=== PATIENT | male | born 1955 | race Caucasian/White ===

== ENCOUNTER 2017-02-23 18:15 | Emergency (ER) | payer BC ==
[~2017-02-23] VITALS: Ht 182.9 cm; Wt 125.7 kg
[2017-02-23 18:15] VITALS: Ht 182.9 cm; Wt 125.7 kg
[~2017-02-23 18:15] MED LIST: ACET-2321 PO; AMOX500C2 PO; ASPI-917 PO; CABE0.5T2 PO; LOSA50TA52 PO; MAGN400O4 PO; MELO-273 PO; OXYC-544 PO; POLY17PO6 PO; TEST200V21 INJ; TRAM-277 PO; TRAM50TA53 PO
--- NOTE | 2017-02-23 18:15 | NUR ---
TRIAGE NOTE PT MOVED FROM EMS CART TO ED CART AND HAVING ALOT OF HIP SPASMS. PT IS NOT ABLE TO LAY ON HIS RIGHT HIP AT ALL AND HIS RIGHT FOOT IS INTERNALLY ROTATED. PT IS YELLING OUT WITH MOVEMENT AND UBNABLE TO GET COMFORTABLE.
--- OUTSIDE RECORDS SUMMARY | 2017-02-23 18:23 | XMS REPORT | Continuity of Care Document ---
Author Author [facility] Organization [facility] Address Unknown Phone Unavailable Support Name Relationship Address Phone TAWANDA CHRISTENSEN MD Caregiver [address] [place] [address] [place] [address] Unavailable YOLI MATHIS MD Caregiver [address] [place] [address] Unavailable YOLI MATHIS MD Caregiver [address] [place] [address] [place] [address] Unavailable WALT MACEDO Next Of Kin [address] [place] [id number] Insurance Providers Guarantor Melissa Macedo Address [address] [place] [address] Email [email or web address] Payer [facility] Policy Number [id number] Subscriber's Name Melissa Macedo Relationship 18 Self Group Number [id number] Advance Directives Directive Response Recorded Date/Time Ordered Resuscitation Status Full Code 01/15/17 4:39pm Resuscitation Documents on File No 01/16/17 10:58am DPOA for Healthcare Only No 01/16/17 10:58am Living Will No 01/16/17 10:58am Problems Active Problems Medical Problem Onset Date Status Degenerative arthritis of hip Unknown Acute Hypertension Unknown Obesity (BMI 30-39.9) Unknown Pituitary macroadenoma Unknown Risk factors for obstructive sleep apnea Unknown Medications Current Home Medications Medication Dose Units Route Directions Days Qty Instructions Start Date Acetaminophen (Tylenol) 325 Mg Tablet 650 Mg Oral Four Times Daily 60 Tablet 01/17/17 Amoxicillin 500 Mg Capsule 4 Cap Oral Daily as needed for Dental Apt 12/04/16 Aspirin (Aspirin Ec) 325 Mg Tablet. 325 Mg Oral Twice A Day 84 Tablet Take aspirin 325mg twice a day for 6 weeks for blood clot prevention. 01/17/17 Cabergoline 0.5 Mg Tablet 1 Tab Oral 2XWK TAKE 1 TAB PO ON TUES AND FRI AT HS 12/04/16 Losartan Potassium 50 Mg Tablet 1 Tab Oral Daily 12/04/16 Magnesium Hydroxide (Milk Of Magnesia) 400 Mg/5 Ml Oral.susp 30 Ml Oral 0800 30 Days 01/17/17 Meloxicam 7.5 Mg Tablet 1 Tab Oral Daily 12/04/16 Oxycodone Hcl (Roxicodone) 5 Mg Tablet 5-10 Mg Oral Every 3 Hours 60 Tablet Take 1-2 (5 mg) tablets, by mouth, every 4 hours. 01/17/17 Polyethylene Glycol 3350 (Miralax) 17 Gm Powd.pack 17 G Oral Daily as needed for Constipation 1 Bottle Take 17 Grams (1 capful), by mouth, once a day. 01/17/17 Testosterone Cypionate 200 Mg/1 Ml Vial 200 Mg Injection Every 2 Weeks 12/04/16 Tramadol Hcl 50 Mg Tablet 1-2 Tab Oral Every 6 Hours as needed for Pain 07/06/09 Tramadol Hcl (Ultram) 50 Mg Tablet 1-2 Tab Oral Every 6 Hours as needed for Pain 60 Tablet 01/17/17 Past Home Medications Medication Directions Ordered Status Aspirin (Aspir 81) 81 Mg Tablet.dr, 81 Mg Oral Daily 07/06/09 Discontinued Social History Social History Problem Response Recorded Date/Time Onset Date Status Reason for Hospitalization Right total hip replacement 01/17/2017 2:00pm Not Applicable Not Applicable Chewing Tobacco Status No 01/16/2017 6:00am Not Applicable Not Applicable Hx Substance Use No 01/16/2017 6:00am Not Applicable Not Applicable Hx Alcohol Use Y weekly 01/16/2017 6:00am Not Applicable Not Applicable Has the pt used tobacco in the last 12 months Yes 01/16/2017 6:00am Not Applicable Not Applicable Query Response Start Date Stop Date Smoking Status Current every day smoker Hospital Discharge Instructions Instructions: Care Instructions: Reason for Hospitalization: Right total hip replacement I was in the hospital because (patient own words): HIP REPLACEMENT TO RESSUME A GOOD QUALITY OF LIFE. Discharge Diet: Resume normal diet as tolerated Discharge Activity: Continue the exercises you were given in the hospital three times a day. Your therapist will provide you with a home therapy program prior to your hospital discharge. As you feel stronger, increase the number of repetitions you do in each session. Please check with us before you swim, use a whirlpool, drive or ride a bicycle. Follow Up Appointments: Follow up as scheduled Pending Lab / Results: No Pending Lab Patient Instructions: Driving may be resumed once you are no longer taking narcotic medications and feel you can safely operate the vehicle. You may wish to practice in an empty parking lot at first. Keep in mind that your reaction time will be delayed for up to 6 weeks after surgery. Contact your surgeon for antibiotics to take before having dental work. Wound/Incision Care: In most cases, a Mepilex dressing will be placed at the time of surgery. This dressing will not need to be covered while showering. Leave dressing in place until your follow-up appointment as long as it remains clean, dry and stuck down well around the edges. Call your Doctor if you encounter a problem with your dressing. Please avoid submerging your incision until it is completely healed, once the Mepilex dressing is removed. This includes bathtubs, swimming pools, and hot tubs. DO NOT USE ALCOHOL, PEROXIDE, OR OINTMENTS of any kind on your incision. Pain Scale Utilized to Educate Patient: 0-10 Pain Scale Pain Management/Treatment: Ice packs may be used, and will also help with the pain. You will be given a prescription for pain. Expected Signs/Symptoms: Some swelling around the incision, as well as in your feet and legs is normal. To help with this, elevate your feet on a footstool when sitting in a chair, and do the ankle pumps and circles whenever you are sitting still. Muscle action helps to move collected fluid out of the tissues and improve circulation. Ice packs may be used, and will also help with the pain. Report any persistent swelling, calf tenderness, increase in pain, or pain in the calf with warmth, or redness to your doctor. Notify Physician If: Report any complications to my office immmediately. This includes excessive bleeding, wound breakdown, redness around the wound, uncontrolled pain, or fever over 101 on 3 different measurements. Eat a balanced diet and get plenty of rest. During Business Hours:: If you have any questions or concerns, please call during regular office hours ([phone]). After Business Hours:: If you have any problems or need to reach a physician after hours or on the weekend please call the hospital's main number [phone] to have your physician paged. Condition at time of discharge: Good Plan of Care Discharge Date 01/17/17 2:17pm Disposition 01 DISCHARGED HOME, SELF-CARE Instructions/Education Provided [facility] Postop Instructions RORY Mathis General Instructions Prescriptions See Medication Section Additional Instructions/Education FOLLOW UP WITH DR MATHIS 4--17 @ 9:00AM [facility] ON 01-19-2017 AT 1:45PM FOR PHYSICAL THERAPY. PHONE [phone] Care Plan and Goals See Discharge Instructions Section Functional Status Query Response Date Recorded Mobility Status Ambulatory w/assist January 17, 2017 2:00pm Assistive Devices None January 17, 2017 2:00pm Activity Limitations None January 17, 2017 2:00pm Feeding Ability Independent January 17, 2017 2:00pm Toileting Ability Independent January 17, 2017 2:00pm Grooming Ability Independent January 17, 2017 2:00pm Dressing Ability Independent January 17, 2017 2:00pm Driving Ability Dependent January 17, 2017 2:00pm Housework Ability Independent January 17, 2017 2:00pm Meal Preparation Ability Independent January 17, 2017 2:00pm Stair Climbing Ability Independent January 17, 2017 2:00pm Ability to complete ADL's impeded by Impaired Mobility January 17, 2017 2:00pm Cognitive/Perceptual Impairments Impaired vision January 17, 2017 2:00pm Visual Assistive Devices Glasses With patient January 16, 2017 10:56am Allergies, Adverse Reactions, Alerts Allergen Type Severity Reaction Status Last Updated Cefadroxil Hydrate Allergy Mild RASH Active 01/16/17 Immunizations Query Response on File Recorded Date/Time Hx Influenza Vaccination Y 01/16/17 6:00am Hx Pneumococcal Vaccination No 01/16/17 6:00am Hx Influenza Vaccination Y 01/16/17 6:00am Influenza Vaccine Hx 08/201601/17/17 12:12pm Vital Signs Acute Vital Signs Vital Response Date/Time Temperature (Fahrenheit) 97.3 deg F (96.8 - 99.1) 01/17/2017 11:53am Temperature (Calculated Celsius) 36.00511 degrees C (36.0 - 37.3) 01/17/2017 11:53am Temperature Source Temporal 01/16/2017 10:29am Pulse Rate (adult) 67 bpm (60 - 100) 01/17/2017 11:53am Respiratory Rate 16 breaths/min (10 - 20) 01/17/2017 11:53am O2 Sat by Pulse Oximetry 94 % (90 - 100) 01/17/2017 11:53am Oxygen Delivery Method Room Air 01/17/2017 12:28am Oxygen Delivery Method Room Air 01/17/2017 11:53am Oxygen Flow Rate 1.00 L/min 01/16/2017 7:29pm Blood Pressure 124/71 mm Hg 01/17/2017 11:53am Blood Pressure Source Automatic Cuff 01/17/2017 11:53am Height (Feet) 6 feet 01/16/2017 5:34am Height (Inches) 0.00 inches 01/16/2017 5:34am Weight (Kilograms) 126.500 kg 01/17/2017 7:23am Body Mass Index (BMI) 36.5 01/16/2017 5:34am Results Laboratory Results Test Name Result Units Flags Reference Collection Date/Time Result Date/ Time Comments White Blood Count 17.7 T/MM3 H 4.5-11.0 01/17/2017 4:20am 01/17/2017 5: 18am Red Blood Count 4.50 M/MM3 4.50-5.90 01/17/2017 4:20am 01/17/2017 5: 18am Hemoglobin 14.5 GM/DL 13.5-17.5 01/17/2017 4:20am 01/17/2017 5:18am Hematocrit 42.4 % 41-53 01/17/2017 4:20am 01/17/2017 5:18am Mean Corpuscular Volume 94.2 UM3 80-100 01/17/2017 4:20am 01/17/2017 5: 18am Mean Corpuscular Hemoglobin 32.2 UUG 26-34 01/17/2017 4:20am 2016 5:18am Mean Corpuscular Hemoglobin Concent 34.2 GM/DL 31-37 01/17/2017 4:20am 01/17/2017 5:18am RDW Standard Deviation 45.7 FL 36.9-50.2 01/17/2017 4:20am 01/17/2017 5 :18am Platelet Count 204 T/MM3 130-400 01/17/2017 4:20am 01/17/2017 5:18am Mean Platelet Volume 10.7 UM3 9.4-12.4 01/17/2017 4:20am 01/17/2017 5: 18am Icterus Index < 2 0-7 01/17/2017 4:20am 01/17/2017 5:23am Chemistry Specimen Hemolysis < 15 0-25 01/17/2017 4:01/17/2017 5 :23am 0-25: Specimen Exhibited No Hemolysis. Turbidity < 20 0-20 01/17/2017 4:01/17/2017 5:23am Sodium Level 138 MEQ/L 134-144 01/17/2017 4:01/17/2017 5:23am Potassium Level 4.2 MEQ/L 3.6-5 01/17/2017 4:01/17/2017 5:23am Chloride Level 108 MEQ/L H 98-107 01/17/2017 4:01/17/2017 5:23am Carbon Dioxide Level 25 MEQ/L 22-30 01/17/2017 4:01/17/2017 5: 23am Anion Gap 5 MEQ/L 5-01/17/2017 4:01/17/2017 5:23am Blood Urea Nitrogen 17.0 MG/DL 9-01/17/2017 4:01/17/2017 5: 23am Creatinine 0.8 MG/DL 0.8-1.5 01/17/2017 4:01/17/2017 5:23am BUN/Creatinine Ratio 21 RATIO 6-26 01/17/2017 4:01/17/2017 5:23am Glomerular Filtration Rate Calc 98 01/17/2017 4:01/17/2017 5: 23am Glucose Level 102 MG/DL 75-110 01/17/2017 4:01/17/2017 5:23am Calculated Osmolality 268 MOSM/KG 261-280 01/17/2017 4:01/17/2017 5:23am Calcium Level 8.9 MG/DL D 8.4-10.2 01/17/2017 4:01/17/2017 5:26am Ionized Calcium (Measured) 1.17 MMOL/L 1.12-1.32 01/16/2017 5:42am 6:11am Name: MELISSA MACEDO Unit #: [id number] : 1955 Sex: M Admit Date: 01/16/17 Loc / Svc: SRG Discharge Date: DIAGNOSTIC IMAGING REPORT Report #: [id number] [facility] [place] EXAM: PELVIS W/1 VIEW RT HIP LOCATION OF DICTATION: [place] HISTORY: ITS.REASON: POSTOP COMPARISON: No prior studies available for comparison. FINDINGS: There is normal osseous mineralization. The ilioischial and iliopectineal lines are intact. The SI joints are well-corticated. Bilateral total hip replacements. No evidence for orthopedic hardware malfunction. Mild spondylosis suggested the lower lumbar spine. IMPRESSION: 1. Bilateral total hip replacements. No evidence for orthopedic hardware malfunction or malalignment with special attention to the right hip joint. . Procedures Procedure Status Date Provider(s) Total replacement of right hip joint Completed 01/16/17 YOLI MATHIS MD Encounters Encounter Location Arrival/Admit Date Discharge/Depart Date Attending Provider Discharged Inpatient [facility] 01/16/17 5:22am 01/17/17 2:17pm YOLI MATHIS MD
--- OUTSIDE RECORDS SUMMARY | 2017-02-23 18:24 | XMS REPORT | Continuity of Care Document ---
Author Author [facility] Organization [facility] Address Unknown Phone Unavailable Allergies Active Description Code Type Severity Reaction Onset Reported/Identified Relationship to Patient Clinical Status Yes Abhi YASH N/A N/A 04/09/2014 Medications Problems Date Dx Coded Attending Type Code Diagnosis Diagnosed By 10/21/2012 Jomar Nava MD Final 787.20 DYSPHAGIA NOS 10/21/2012 Jomar Nava MD Admitting 787.20 DYSPHAGIA NOS Procedures Results Test Result Range CBC With Platelet and Differential - 11/14/16 11:12 Absolute Basophils 0.02 10*3/uL 0.00- 0.20 Absolute Eosinophils 0.08 10*3/uL 0.00- 0.50 Absolute Lymphocytes 1.36 10*3/uL 0.80- 3.30 Absolute Monocytes 0.50 10*3/uL 0.30- 1.00 Absolute Neutrophils 7.59 10*3/uL 1.90- 7.00 Basophils 0 % 0-2 Eosinophils 1 % 0-4 HCT 48.8 % 42.0-52.0 HGB 17.1 g/dL 14.0-18.0 Immature Granulocytes 0.2 % 0.0-1.0 Lymphocytes 14 % 20-46 MCH 32.5 pg 27.0-32.0 MCHC 35.0 g/dL 32.0-36.0 MCV 92.8 fL 82.0-99.0 Monocytes 5 % 4-11 MPV 11.0 fL 8.8-14.8 Neutrophils 79 % 51-75 Platelet Count 220 K/uL 150-400 RBC 5.26 10*6/uL 4.60-6.20 RDW 15.9 % 11.5-14.5 WBC 9.6 K/uL 4.8-10.8 PSA - 11/14/16 11:12 PSA 0.9 ng/mL 0.0-4.5 TSH - 11/14/16 11:12 TSH 2.77 uIU/mL 0.35-4.94 Cortisol AM - 11/14/16 11:12 Cortisol AM 5 ug/dL 3-20 Free T4 - 11/14/16 11:12 Free T4 0.9 ng/dL 0.7-1.5 FSH and LH - 11/14/16 11:12 FSH 0.3 mIU/mL 1.0-12.0 Luteinizing Hormone 0.2 mIU/mL 0.6-12.1 Prolactin - 11/14/16 11:12 Prolactin 9.9 ng/mL 3.5-19.4 Testosterone - 11/14/16 11:12 Testosterone 1259 ng/dL 221-716 ACTH - 11/14/16 11:12 ACTH 17 pg/mL IGF-1 and IGF Binding Protein 3 - 11/14/16 11:12 IGFBP-3, S 4.8 mcg/mL CBC With Platelet and Differential - 12/21/16 16:06 Absolute Basophils 0.02 10*3/uL 0.00- 0.20 Absolute Eosinophils 0.18 10*3/uL 0.00- 0.50 Absolute Lymphocytes 1.22 10*3/uL 0.80- 3.30 Absolute Monocytes 0.91 10*3/uL 0.30- 1.00 Absolute Neutrophils 6.46 10*3/uL 1.90- 7.00 Basophils 0 % 0-2 Eosinophils 2 % 0-4 HCT 50.8 % 42.0-52.0 HGB 17.4 g/dL 14.0-18.0 Immature Granulocytes 0.3 % 0.0-1.0 Lymphocytes 14 % 20-46 MCH 32.0 pg 27.0-32.0 MCHC 34.3 g/dL 32.0-36.0 MCV 93.6 fL 82.0-99.0 Monocytes 10 % 4-11 MPV 10.6 fL 8.8-14.8 Neutrophils 73 % 51-75 Platelet Count 230 K/uL 150-400 RBC 5.43 10*6/uL 4.60-6.20 RDW 14.8 % 11.5-14.5 WBC 8.8 K/uL 4.8-10.8 Comprehensive Metabolic Panel (CMP) - 12/21/16 16:06 Albumin 3.7 g/dL 3.4-4.8 Alkaline Phosphatase 78 U/L 40-150 ALT (SGPT) 17 U/L 0-55 Anion Gap 8 NA 3-20 AST (SGOT) 17 U/L 5-34 Bilirubin Total 0.3 mg/dL 0.2-1.2 BUN 13 mg/dL 8-26 Calcium 9.3 mg/dL 8.4-10.2 Chloride 109 mEq/L 99-111 CO2 23 mEq/L 23-31 Creatinine 0.81 mg/dL 0.72-1.25 Globulin 2.9 g/dL 1.8-4.0 Glucose 78 mg/dL 70-99 Potassium 4.4 mEq/L 3.5-5.2 Protein 6.6 g/dL 6.0-7.6 Sodium 140 mEq/L 135-144 eGFR - 12/21/16 16:06 eGFR >60 mL/min >60 Hemoglobin A1C - 12/21/16 16:06 Hemoglobin A1C 5.6 % 4.1-5.6 Estimated Average Glucose - 12/21/16 16:06 Estimated Average Glucose 114.0 mg/dL Urinalysis with reflex microscopic - 12/21/16 16:12 Appearance Clear NA Bilirubin Negative NA Negative Blood Negative NA Negative Color Yellow NA Glucose, Urine Negative Negative Ketones Negative Negative Leukocyte Esterase Negative NA Negative Nitrites Negative NA Negative pH 6.5 NA 5.0-8.0 Protein Negative Negative Specific [place] 1.022 NA 1.003-1.030 UA Collection type Voided NA Urobilinogen 1.0 mg/dL <1.0 Encounters ACCT No. Visit Date/Time Discharge Status Pt. Type Provider Facility Loc./Unit Complaint [id number] 10/21/2012 09:09:00 2011 23:59:59 CLS Outpatient Elijah NGUYEN, Jomar Mcdaniel [facility] on [address]
[2017-02-23] MEDS ORDERED: ACET-62 PO (18:36)
[2017-02-23] MEDS ORDERED: ASPI325T PO (18:37)
--- NOTE | 2017-02-23 18:37 | ERPDOC ---
Departure Disposition Decision Date: Feb 23, 2017 Disposition Decision Time: 21:37 Disposition: 01 DISCHARGED HOME, SELF-CARE Impression Impression Impression: Primary Impression: Dislocation of hip joint prosthesis Encounter type: initial encounter Qualified Codes: T84.029A - Dislocation of unspecified internal joint prosthesis, initial encounter; Z96.649 - Presence of unspecified artificial hip joint Severity: Severe Condition: Improved Seen By: Physician only Referrals: TAWANDA CHRISTENSEN MD (Family) 1 Week YOLI MATHIS MD 1 Week Patient Instructions: Hip Dislocation (ED) Problems/Meds/Labs Reviewed?: Yes Medications reviewed and manag: Yes Additional Instructions: Your hip was dislocated. Dr. Mathis has put it back into place. Keep the knee immobilizer in place as directed. Follow Dr. Mathis's hip instructions to the letter. Take your medications as prescribed and use the tramadol if you need to for pain. Follow up with Dr. Mathis next week as arranged. Follow up with your doctor. Follow up care ordered?: Yes Mental Status: Alert, Oriented Scripts Tramadol HCl (Tramadol HCl) 50 Mg Tablet 1-2 TAB PO Q6HR Y for PAIN, #20 TAB 0 Refills Prov: NADIYA DE LA FUENTE DO 02/23/17 HPI - Lower Extremity General Stated Complaint: HIP PAIN Time Seen by Provider: 18:27 Source: patient Exam Limitations: no limitations HPI - Lower Extremity Initial Comments 61yo man presented to the ER by EMS for right hip pain. Pt has had that hip replaced previously. While bending over to tie his shoes, pt says that his hip gave way and he fell down. Now cannot lie on his right side and cannot bear weight. While en route, pt soaked up 200mcg of fentanyl IV, but cont to c/o 8/ 10 => 9/10 hip pain. Last meal was at 1330 today; last fluid intake was water, 2hrs prior. Occurred At: home Onset/Timing: Rapid Duration: 1 hr Pain/Severity Scale: Now: 8/10, Worst: 9/10 Severity: severe Pain/Injury Location: right hip Method of Injury: unknown Modifying Factors/Context: IMPROVES WITH: immobilization, pain medication, WORSE WITH: jarring, movement Hx of Similar Symptoms: Yes Quality: sharpness, stabbing Allergies: Coded Allergies: Cefadroxil Hydrate (Verified Allergy, Mild, RASH, 01/16/17) Past History Patient Medical History (1) Hypogonadism (2) Obesity (BMI 30-39.9) (3) Pituitary macroadenoma Past Medical History Metabolic: hypertension Cardiac: CAD Musculoskeletal: osteoarthritis Surgical History Joint: hip Vaccines Hx Influenza Vaccination: Yes () Hx Pneumococcal Vaccination: No Social History Does patient use chewing tobac: No Substance Use Type: does not use Review of Systems Musculoskeletal General: cramps, joint pain, tenderness All other Systems All Other Systems: Reviewed and Negative Physical Exam General General Nourishment: well nourished, well developed, appears stated age, no acute distress, adult, obese General Body Habitus: well groomed Vitals and Pain Weight: Kilograms: Height (feet): 6 Height (inches): 0.00 Triage Pain Scale: RN VS reviewed by Provider: Yes Normal Exams: Head: Normocephalic w/o trauma Eyes: Pupils are PERRLA w/ EOMI, No scleral icterus, irritation ENMT: No facial trauma, nasal exudates, pharyngeal erythema Neck: Full range of motion, without adenopathy, JVD Lymphatic: No lymphadenopathy Musculoskeletal: No tenderness, or deformity noted Integumentary: No rashes, hives, or bruising noted Neurologic: Patient is alert, and oriented Psychiatric: Patient exhibits, appropriate attention Respiratory (brief) Respiratory: FOUND: clear all fay, equal bilaterally, symmetrical, NOT FOUND : rales, wheezes Cardiovascular (brief) Cardiac: FOUND: regular rate, regular rhythm, NOT FOUND: click, gallop, murmur , pedal edema, peripheral edema, rub Capillary Refill: <2 sec Pulses: all distal extremities, equal, strong Abdomen (brief) Abdominal Brief: FOUND: bowel normo active x4, soft, NOT FOUND: distended, hepatosplenomegaly, pulsatile mass, tender Differential Diagnoses Considering: Contusion, Dislocation, Fracture, Sprain, Strain, Trauma Procedures Procedures Performed Procedures Performed: Conscious Sedation Conscious Sedation Procedure Conscious Sedation : Consent Obtained: Yes Procedure: Right hip reduction Monitoring: oxygen saturation, cardiac, CO2 Personnel: Signing Physician, Nurse 1 Complications: No Interventions: Yes (Required manual ventilation with a BVM) Maximum Depth of Sedation: Moderate Sedation Conscious Sedation Comments Mallampati 2; 3+ fingerbreadths from mandible to sternal notch. Reduction of Joint/Fracture Procedure Joint/Fracture Reduc : Consent Obtained: Yes Pre-procedure NV: FOUND: cap refill < 3 sec, good movement, good sensation Location: Left hip Anesthesia: conscious sedation Medication Used: other (Propofol) Attempts: 1 Post-procedure NV: FOUND: cap refill < 3 sec, good movement, good sensation Progress Results/Orders Orders Procedure Category Date Status Time Normal Saline (Normal PHA 02/23/17 Complete Saline Iv) 18:45 Ketamine (Ketalar) PHA 02/23/17 Complete 18:45 Hip Right 2 View RAD 02/23/17 Resulted 18:31 Ondansetron Inj PHA 02/23/17 Complete (Zofran) 19:30 Lorazepam (Ativan) PHA 02/23/17 Complete 19:45 Iv Lock (Ed Only) EDM 02/23/17 Transmitted 19:51 Propofol 200mg PHA 02/23/17 Complete (Diprivan) 20:45 Hip Right 2 View RAD 02/23/17 Resulted Premade Splint EDM 02/23/17 Transmitted 21:43 Medications Current ED Medications Sodium Chloride (Normal Saline IV) 1,000 ml @ 70 mls/hr [id number] ONCE IV Last administered on 02/23/17 18:47; Start 02/23/17 at 18:45; Stop 02/23/17 at 22:55 ; Status DC Ketamine HCl (Ketalar) 100 mg O ONCE IV Last administered on 02/23/17 18:47; Start 02/23/17 at 18:45; Stop 02/23/17 at 18:46; Status DC Ondansetron HCl (Zofran) 4 mg O ONCE IV Last administered on 02/23/17 18:53; Start 02/23/17 at 19:30; Stop 02/23/17 at 19:31; Status DC Lorazepam (Ativan) 1 mg O ONCE IV Last administered on 02/23/17 19:52; Start 02/23/17 at 19:45; Stop 02/23/17 at 19:46; Status DC Propofol (Diprivan) 200 mg O ONCE IV Last administered on 02/23/17 20:49; Start 02/23/17 at 20:45; Stop 02/23/17 at 20:46; Status DC Progress Progress 1850: Pt prep'ed by local protocol for administration of ketamine for sx relief. 100mg ketamine given by physician for pain relief. Pt tolerated the medication well with continued stable VS. Radiology contacted for ordered images. Pt with confirmed hip dislocation. Dr. Mathis contacted for aid with reduction in OR (unable to provide sedation in ER due to staffing). OR occupied for 2+ hours. Volume dropped off in ER, so Dr. Mathis contacted for reduction in ER. Successful closed reduction in ER with propofol. Post-reduction films confirm reduction. Consult/PCP Consult/PCP : Physician Contacted: Dr. Mathis Time Called: 19:11 Type of discussion: Phone Consult/PCP Xray Xray #1: Xray: Hip R Interpretation: Abnormal (Dislocated hip without other bony abn.), Interpreted by Me Xray #2: Xray: Hip R Interpretation: Abnormal (Interval reduction; no evidence of fx), Interpreted by NADIYA Ramirez DO Feb 23, 2017 18:37
[2017-02-23] MEDS ORDERED: POLY17PO6 PO (18:39)
[2017-02-23] MEDS ORDERED: NORMAL SALINE 1,000 ML IV ONE (18:45)
[2017-02-23] MEDS ORDERED: KETAMINE 500mg/10ml INJECTION IV ONE (18:45)
--- NOTE | 2017-02-23 18:47 | NUR ---
IV FLUID #1 IV 1000CC NS STARTED AT 999CC/HR IV SITE WITHOUT REDNESS OR SWELLING
--- NOTE | 2017-02-23 18:47 | NUR ---
KETAMINE IV KETAMINE GIVEN TO PT FOR PAIN SLOW IV PUSH GIVEN BY DR DE LA FUENTE
--- NOTE | 2017-02-23 18:51 | NUR ---
STATUS PT IS RELAXED AND ABLE TO GET PT BETTER POSITIONED ON THE SLIDE BOARD FOR XRAY TALKING SOME, BUT VERY DAZED STATES HE DOESN'T LIKE THE WAY IT FEELS REPORTS HE HAS NO PAIN RIGHT NOW
--- NOTE | 2017-02-23 18:53 | NUR ---
ZOFRAN IV ZOFRAN GIVEN ORDERED
--- OUTSIDE RECORDS SUMMARY | 2017-02-23 18:56 | XMS REPORT | Continuity of Care Document ---
Author Author [facility] Organization [facility] Address Unknown Phone Unavailable Allergies Active Description [...] 6.5 NA 5.0-8.0 Protein Negative Negative Specific [place] 1.022 NA 1.003-1.030 UA Collection type Voided NA Urobilinogen 1.0 mg/dL <1.0 Encounters ACCT No. Visit Date/Time Discharge Status Pt. Type Provider Facility Loc./Unit Complaint [id number] 10/21/2012 09:09:00 2011 23:59:59 CLS Outpatient Elijah NGUYEN, Jomar Mcdaniel [facility] [address]
--- NOTE | 2017-02-23 18:57 | NUR ---
XRAY PT TAKEN TO XRAY PER CART
--- NOTE | 2017-02-23 19:13 | NUR ---
ROOM PT RETURNED TO ROOM TA PER CART PT IS ALERT AND TALKING WITH STAFF
[2017-02-23] MEDS ORDERED: ONDANSETRON 4mg/2ml INJECTION IV ONE (19:30)
[2017-02-23] MEDS ORDERED: LORAZEPAM 2 MG/ML INJECTION IV ONE (19:45)
--- NOTE | 2017-02-23 19:54 | NUR ---
DR ADELE ANGULO NOTIFIED THAT WE CAN DO CONSCIOUS SEDATION HERE RIGHT NOW HE WILL BE HERE IN ABOUT 7 MIN
--- NOTE | 2017-02-23 20:02 | NUR ---
RT DIANA, RT AT BEDSIDE.
--- NOTE | 2017-02-23 20:07 | NUR ---
DISCUSSED STOPBANG QUESTION FINDINGS AND PT HAS HIGH RISK. DR DE LA FUENTE AT BEDSIDE, PERFORMED AIRWAY ASSESSMENT AT THIS TIME.
--- NOTE | 2017-02-23 20:36 | NUR ---
DR DR ANGULO AT BEDSIDE.
--- NOTE | 2017-02-23 20:42 | NUR ---
PROCEDERAL SEDATION BEGINS AT THIS TIME.
--- NOTE | 2017-02-23 21:07 | CONSPD ---
Consultation Info Date DATE: 02/23/17 TIME: 21:01 Reason for Consultation: right hip prosthetic dislocation Impression/Recommendation Impression/Recommendation: (1) Dislocation of hip joint prosthesis Status: Acute Qualifiers: Encounter type: initial encounter Qualified Codes: T84.029A - Dislocation of unspecified internal joint prosthesis, initial encounter; Z96.649 - Presence of unspecified artificial hip joint Recommendation: Closed reduction in the emergency room followed by strict hip precautions and follow up in office next week. Abductor pillow wedge at night and knee immobilizer. Ortho HPI HPI Elements Location: FOUND hip (right) Injury: No Pain: FOUND sharp Onset: Sudden Severity: FOUND severe Duration: FOUND 1-6 hours Previous Surgery: Yes Previous Injury: No HPI Mr. Macedo is a kind 51-year-old gentleman who is 5 weeks status post right total hip arthroplasty by myself. He states that yesterday he was playing on a sock and felt severe pain in his hip he had hit family member help him up and then the pain immediately when away. Today again he was putting on a sock without his assisted device and again felt immediate pain in his hip is brought to the emergency room and found to have a dislocation. I then severe pain in his hip he has no other complaints. Review of Systems Unable to Obtain ROS Due to: clinical condition Past Medical History Adult Current Medications Acetaminophen (Acetaminophen) 500 Mg Tablet, 2 TAB PO Q8H PRN for PAIN, ( Reported) Last Taken: Unknown Dose on 02/23/17 0800 Aspirin (Aspirin) 325 Mg Tablet, 325 MG PO BID, (Reported) Last Taken: Unknown Dose on 02/23/17 0800 Cabergoline (Cabergoline) 0.5 Mg Tablet, 0.5 MG PO 2XWK, (Reported) TAKE 1 TAB PO ON AND FRI AT HS Last Taken: Unknown Dose on 02/20/17 2000 Losartan Potassium (Losartan Potassium) 50 Mg Tablet, 50 MG PO DAILY, (Reported) Last Taken: Unknown Dose on 02/23/17 0800 Oxycodone HCl (Roxicodone) 5 Mg Tablet, 5-10 MG PO Q3H Take 1-2 (5 mg) tablets, by mouth, every 4 hours. Last Taken: Unknown Dose on Unknown Date & Time Polyethylene Glycol 3350 ( Miralax) 17 Gm Powd.pack, 17 G PO DAILY PRN for CONSTIPATION, (Reported) Last Taken: Unknown Dose on Unknown Date & Time Testosterone Cypionate ( Testosterone Cypionate) 200 Mg/1 Ml Vial, 200 MG INJ Q2WK, (Reported) Last Taken: Unknown Dose on 01/31/17 Tramadol Hcl (Tramadol Hcl) 50 Mg Tablet, 1-2 TAB PO Q6H PRN for PAIN, (Reported) Last Taken: Unknown Dose on 02/23/17 0800 Allergies Allergies: Coded Allergies: Cefadroxil Hydrate (Verified Allergy, Mild, RASH, 01/16/17) Vaccines 08/2016 No SKIN INTACT Social History Does patient use chewing tobac: No Substance Use Type: does not use Physical Exam General General: well nourished, well developed, no acute distress Respiratory FOUND non-labored Cardiovascular FOUND pedal pulses intact Musculoskeletal Comments Right leg is internally rotated and shortened. Integumentary FOUND dry, FOUND pink, FOUND warm Neurologic FOUND intact to light touch, FOUND no deficits Psychiatric FOUND alert, FOUND normal affect YOLI ANGULO MD Feb 23, 2017 21:06
--- NOTE | 2017-02-23 21:12 | PDOPERATE ---
Operative Report Date of Operation 02/23/17 Side: Right Preoperative Diagnosis: hip pain, other (dislocation of right hip prosthetic implant) Postoperative Diagnosis Same as preoperative diagnosis. Operation/Procedure: other (closed reduction of right hip prosthetic implant) Surgeon Jackelyn Mathis MD Nursing Program Chair none Complications None. Anesthesia Plan: TIVA Estimated Blood Loss none Fluids Please ER record Description of Operation After timeout was confirmed with all involved follows given by the ER physician. Once adequate anesthesia was obtained and performed a reduction maneuver to the right hip using the [place] maneuver. This was successful and I was able to range the hip without popping or grinding. It felt stable up to 90 . I then extended both legs they looked equal length and equal rotation. He was then allowed to awake from his anesthesia and knee immobilizers placed in the right knee. He is neurovascularly intact once awake. YOLI MATHIS MD Feb 23, 2017 21:12
--- NOTE | 2017-02-23 21:31 | NUR ---
RECOVERY COMPLETE PT HAS COMPLETED RECOVERY TIME POST PROCEDURE.
[2017-02-23] MEDS ORDERED: TRAM50TA4 PO (21:39)
--- NOTE | 2017-02-23 22:07 | NUR ---
AMBULATION PT ABLE TO AMBULATE AROUND ROOM WITHOUT DIFFICULTY, UTILIZING WALKER, KNEE IMMOBILIZER REMAINS IN PLACE
[2017-02-23 22:22] VITALS: BP 139/71; PULSE 69; RESP 16; TEMP 98.5; O2SAT 96
--- NOTE | 2017-02-23 22:22 | NUR ---
DISMISS PT DISMISSED VIA WC TO PRIVATE CAR DRIVEN BY FEMALE FRIEND. PT DENIES FURTHER QUESTIONS.
--- NOTE | 2017-02-25 09:58 | DI ---
Indication: ITS.REASON: POST REDUCTION PROCEDURE: HIP RIGHT 2 VIEW: Encounter: Initial Comparison: Earlier on the same date Findings: Prior femoral dislocation has been successfully reduced. No acute fracture or dislocation currently. Hip prosthesis appears intact. Impression: Interval reduction of the right femoral component dislocation. .
--- NOTE | 2017-02-25 10:14 | DI ---
Indication: ITS.REASON: Right hip Pain; prior replacement PROCEDURE: HIP RIGHT 2 VIEW: Encounter: Initial Comparison: January 16, 2017 Findings: Interval dislocation of the femoral component of the right total hip prosthesis. No acute fracture identified. Dislocation is superior and posterior. Impression: Posterior superior dislocation of the right femoral component. .
== END 2017-02-23 22:22 | disposition home or self-care (01) ==
LOC: ED 18:15
DX: T84.020A Dislocation of internal right hip prosthesis, initial encounter (principal); W18.39XA Other fall on same level, initial encounter; Y93.89 Activity, other specified; Y92.009 Unspecified place in unspecified non-institutional (private) residence as the place of occurrence of the external cause; Y99.8 Other external cause status
CPT/HCPCS: 27265; 73502; 96361; 96374; 96375; 99285; J2060; J2405; J2704; J7030

== ENCOUNTER 2017-07-24 07:30 | Inpatient (IN) ==
[~2017-07-24 07:30] MED LIST changes: -ACET-2321 PO; +ACETAMINOPHEN 500 MG TABLET PO ONE; -AMOX500C2 PO; -ASPI-917 PO; -CABE0.5T2 PO; +CLINDAMYCIN PB 900 MG/50 ML BAG IV ONE; +DEXAMETHASONE 4 MG/ML INJECTION IVP ONE; +FAMOTIDINE PB 20 MG/50 ML BAG IV ONE; +LIDOCAINE 1% (10mg/ml) 2mL INJ PF SDV ID ONE; -LOSA50TA52 PO; -MAGN400O4 PO; -MELO-273 PO; +MELOXICAM 15 MG TABLET PO ONE; +METOCLOPRAMIDE 10mg/2ml INJECTION IVP ONE; +NOZIN NASAL SWAB NAS ONE; +ONDANSETRON 4 MG/2 ML INJECTION IVP ONE; -OXYC-544 PO; -POLY17PO6 PO; -TEST200V21 INJ; -TRAM-277 PO; -TRAM50TA53 PO; +TRANEXAMIC ACID 1,000 MG in NS 100 ML IV ONE
[2017-07-24] MEDS ORDERED: EPINEPHrine 0.25 MG, BUPIVACAINE 0.25% PF 30 ML, MORPHINE SULFATE 15 MG, KETOROLAC INJ ... OPSITE ONE (08:00)
--- OUTSIDE RECORDS SUMMARY | 2017-07-24 08:27 | External Medical Summary | Referral Summary ---
:1955 Author Organization [facility] Address [address] [place] [address] Care Team Providers Name Role Phone Uriel Mckee Primary Care Physician Encounter [facility] [id number] Date(s): 05/11/15 - 05/11/15 [facility] [address] [place] [place] [address] - [place] Discharge Diagnosis: Hypogonadism, male Discharge Diagnosis: Pituitary macroadenoma Discharge Disposition: 01-Home or Self Care Attending Physician: Eri Fitzgerald MD Admitting Physician: Eri Fitzgerald MD Vital Signs Most recent to oldest [Reference Range]: 1 Peripheral Pulse Rate [60-100 bpm] 60 bpm (05/11/15 8:29 AM) Blood Pressure [90-140/60-90 mmHg] 115/72 mmHg (05/11/15 8:29 AM) Problem List Condition Effective Dates Status Health Status Informant Benign essential HTN(Confirmed) Resolved Cervical radiculopathy(Confirmed) Active Choking sensation(Confirmed) Active Essential hypertension Active (disorder)(Confirmed) Globus pharyngeus(Confirmed) Active Hip replacement(Confirmed) Resolved Hypertension(Confirmed) Active Morbid obesity(Confirmed) Active patient Obesity(Confirmed) Active Obesity (disorder)(Confirmed) Active Osteoarthritis(Confirmed) Active Pituitary macroadenoma(Confirmed) Active Psychologic conversion disorder Active (finding)(Confirmed) Sleep apnea(Confirmed) Active Sleep apnea (disorder)(Confirmed) Active Thyroid disease(Confirmed) Active Allergies, Adverse Reactions, Alerts Substance Reaction Severity Status Duricef Active Medications amoxicillin 500 mg oral tablet tabs, Oral, Once, NEEDED FOR DENTIST, 0 Refill(s) Start Date: 10/06/14 Status: Orderedaspirin 81 mg, Oral, Daily, 0 Refill(s) Start Date: 04/09/14 Status: Orderedcabergoline 0.5 mg oral tablet 1 tabs, Oral, 2x/Wk, # 8 Each, 4 Refill(s), Pharmacy: [facility] [employer] [id number] , 1 tabs Oral 2x/Wk Start Date: 12/30/14 Status: Orderedlosartan 50 mg oral tablet See Instructions, 1 TABS ORAL DAILY,INSTR:APPOINTMENT NEEDED PRIOR TO ADDITIONAL REFILLS., # 30 tabs, 5 Refill(s), eRx: [facility] [employer] [id number], 1 TABS ORAL DAILY,INSTR:APPOINTMENT NEEDED PRIOR TO ADDITIONAL REFILLS. Start Date: 05/19/15 Status: Orderedtestosterone cypionate 200 mg/mL intramuscular solution 200 mg 1 mL, IntraMuscular, q2wk, # 3 mL, 3 Refill(s) Start Date: 05/11/15 Status: OrderedtraMADol 50 mg oral tablet 1-2 tabs, Oral, q8hr, as needed for pain, [facility], # 60 tabs, 0 Refill(s), 1- 2 tabs Oral q8hr,PRN:as needed for pain Start Date: 09/03/14 Status: Ordered Results Hematology Most recent to oldest [Reference Range]: 1 WBC [4.8-10.8 10*3/uL] 8.0 10*3/uL (05/11/15 9:18 AM) RBC [4.60-6.20 10*6/uL] 4.76 10*6/uL (05/11/15 9:18 AM) Hgb [14.0-18.0 gm/dL] 14.3 gm/dL (05/11/15 9:18 AM) Hct [42.0-52.0 %] 43.3 % (05/11/15 9:18 AM) MCV [82.0-99.0 fL] 91.0 fL (05/11/15 9:18 AM) MCH [27.0-32.0 pg] 30.0 pg (05/11/15 9:18 AM) MCHC [32.0-36.0 gm/dL] 33.0 gm/dL (05/11/15 9:18 AM) RDW [11.5-14.5 %] 14.5 % (05/11/15 9:18 AM) Platelet [150-400 10*3/uL] 253 10*3/uL (05/11/15 9:18 AM) MPV [8.8-14.8 fL] 10.8 fL (05/11/15 9:18 AM) Immature Granulocytes [0.0-1.0 %] 0.2 % (05/11/15:18 AM) Neutrophils [51-75 %] 75 % (05/11/15 9:18 AM) Lymphocytes [20-46 %] 16 % *LOW* (05/11/15 9:18 AM) Monocytes [4-11 %] 8 % (05/11/15 9:18 AM) Eosinophils [0-4 %] 1 % (05/11/15:18 AM) Basophils [0-2 %] 0 % (05/11/15 9:18 AM) Neutro Absolute [1.90-7.00 10*3] 6.00 10*3 (05/11/15 9:18 AM) Lymph Absolute [0.80-3.30 10*3] 1.25 10*3 (05/11/15 9:18 AM) [place] Absolute [0.30-1.00 10*3] 0.65 10*3 (05/11/15 9:18 AM) Eos Absolute [0.00-0.50 10*3] 0.07 10*3 (05/11/15 9:18 AM) Baso Absolute [0.00-0.20 10*3] 0.02 10*3 (05/11/15 9:18 AM) Chemistry Most recent to oldest [Reference Range]: 1 PSA Total with Reflex Free [0.0-3.5 ng/mL] 0.3 ng/mL 1 (05/11/15 9:18 AM) 1Result Comment: [facility] PSA Best Practice Guidelines: Age-Adjusted PSA Values by Ethnic Group Age Range Asians - Caucasians Americans 40-49 0-2.0 0-2.0 0-2.5 50-59 0-3.0 0-4.0 0-3.5 60-69 0-4.0 0-4.5 0-4.5 70-79 0-5.0 0-5.5 0-6.5 Immunizations No data available for this section Procedures Procedure Date Related Diagnosis Body Site Collection of venous blood by venipuncture 05/11/15 Colonoscopy 2006 Hernia repair Hip replacement - left Thyroidectomy Vasectomy Social History Social History Type Response Smoking Status Former smoker Assessment and Plan No data available for this section
--- OUTSIDE RECORDS SUMMARY | 2017-07-24 08:27 | External Medical Summary | Referral Summary ---
:1955 Author Organization [facility] [address] [place] [address] Care Team Providers Name Role Phone Uriel Mckee Primary Care Physician Encounter [facility] Date(s): 12/21/16 - 12/21/16 [facility] [place] [address] Discharge Diagnosis: Cervical radiculopathy Discharge Diagnosis: Chronic hip pain Discharge Diagnosis: Preop general physical exam Discharge Diagnosis: Benign essential HTN Discharge Diagnosis: Osteoarthritis Discharge Diagnosis: Erectile dysfunction Discharge Diagnosis: Hypogonadism, male Discharge Diagnosis: Pituitary macroadenoma Discharge Diagnosis: Obesity (disorder) Discharge Disposition: 01-Home or Self Care Attending Physician: Uriel Mckee MD Admitting Physician: Uriel Mckee MD Vital Signs Most recent to oldest [Reference Range]: 1 Blood Pressure [90-140/60-90 mmHg] 120/80 mmHg (12/21/16 3:11 PM) Problem List Condition Effective Dates Status Health Status Informant Acute back pain with Active sciatica(Confirmed) Chronic hip pain(Confirmed) Active Benign essential HTN(Confirmed) Resolved Cervical radiculopathy(Confirmed) Active Choking sensation(Confirmed) Active Hypogonadism, male(Confirmed) Active Globus pharyngeus(Confirmed) Active Hip replacement(Confirmed) Resolved Morbid obesity(Confirmed) Active patient Obesity (disorder)(Confirmed) Active Erectile dysfunction(Confirmed) Active Osteoarthritis(Confirmed) Active Pituitary macroadenoma(Confirmed) Active Psychologic conversion disorder Active (finding)(Confirmed) Sleep apnea(Confirmed) Active Thyroid disease(Confirmed) Active Allergies, Adverse Reactions, Alerts Substance Reaction Severity Status Duricef Active Medications amoxicillin 500 mg oral tablet tabs, Oral, Once, NEEDED FOR DENTIST, 0 Refill(s) Start Date: 10/06/14 Status: Orderedaspirin 81 mg, Oral, Daily, 0 Refill(s) Start Date: 04/09/14 Status: Orderedcabergoline 0.5 mg oral tablet 0.5 mg 1 tabs, Oral, 2x/Wk, # 8 Each, 4 Refill(s), Pharmacy: [facility], patient must keep appointment, 1 tabs Oral 2x/Wk Start Date: 06/27/16 Status: Orderedlosartan 50 mg oral tablet See Instructions, TAKE 1 TABLET BY MOUTH EVERY DAY, # 30 tabs, eRx: [facility] [id number] Start Date: 12/12/16 Status: Orderedmeloxicam 7.5 mg oral tablet See Instructions, TAKE 1 TABLET BY MOUTH TWICE DAILY NEEDED FOR PAIN, # 60 tabs, eRx: [facility] [id number] Start Date: 12/19/16 Status: Orderedtestosterone cypionate 200 mg/mL intramuscular solution 100 mg, IntraMuscular, q2wk, # 3 mL, 3 Refill(s) Start Date: 11/16/16 Status: OrderedtraMADol 50 mg oral tablet 1-2 tabs, Oral, q6hr, as needed for pain, Aleah, note increase in dose and number dispensed, # 120 tabs, 0 Refill(s), 1-2 tabs Oral q8hr,PRN:as needed for pain Start Date: 09/27/16 Status: OrderedViagra 50 mg oral tablet See Instructions, TAKE 1 TABLET BY MOUTH EVERY DAY NEEDED FOR ERECTILE DYSFUNCTION, # 10 tabs, [facility] [id number] Start Date: 10/17/16 Status: Ordered Results Hematology Most recent to oldest [Reference Range]: 1 WBC [4.8-10.8 10*3/uL] 8.8 10*3/uL (12/21/16 4:06 PM) RBC [4.60-6.20] 5.43 (12/21/16 4:06 PM) Hgb [14.0-18.0 gm/dL] 17.4 gm/dL (12/21/16 4:06 PM) Hct [42.0-52.0 %] 50.8 % (12/21/16 4:06 PM) MCV [82.0-99.0 fL] 93.6 fL (12/21/16 4:06 PM) MCH [27.0-32.0 pg] 32.0 pg (12/21/16 4:06 PM) MCHC [32.0-36.0 gm/dL] 34.3 gm/dL (12/21/16 4:06 PM) RDW [11.5-14.5 %] 14.8 % *HI* (12/21/16 4:06 PM) Platelet [150-400 10*3/uL] 230 10*3/uL (12/21/16 4:06 PM) MPV [8.8-14.8 fL] 10.6 fL (12/21/16 4:06 PM) Immature Granulocytes [0.0-1.0 %] 0.3 % (12/21/16 4:06 PM) Neutrophils [51-75 %] 73 % (12/21/16 4:06 PM) Lymphocytes [20-46 %] 14 % *LOW* (12/21/16 4:06 PM) Monocytes [4-11 %] 10 % (12/21/16 4:06 PM) Eosinophils [0-4 %] 2 % (12/21/16 4:06 PM) Basophils [0-2 %] 0 % (12/21/16 4:06 PM) Neutro Absolute [1.90-7.00] 6.46 (12/21/16 4:06 PM) Lymph Absolute [0.80-3.30] 1.22 (12/21/16 4:06 PM) [place] Absolute [0.30-1.00] 0.91 (12/21/16 4:06 PM) Eos Absolute [0.00-0.50] 0.18 (12/21/16 4:06 PM) Baso Absolute [0.00-0.20] 0.02 (12/21/16 4:06 PM) Chemistry Most recent to oldest [Reference Range]: 1 Sodium Lvl [135-144 mEq/L] 140 mEq/L (12/21/16 4:06 PM) Potassium Lvl [3.5-5.2 mEq/L] 4.4 mEq/L (12/21/16 4:06 PM) Chloride [99-111 mEq/L] 109 mEq/L (12/21/16 4:06 PM) CO2 [23-31 mEq/L] 23 mEq/L (12/21/16 4:06 PM) AGAP [3-20] 8 (12/21/16 4:06 PM) BUN [8-26 mg/dL] 13 mg/dL (12/21/16 4:06 PM) Glucose Lvl [70-99 mg/dL] 78 mg/dL (12/21/16 4:06 PM) Creatinine Lvl [0.72-1.25 mg/dL] 0.81 mg/dL (12/21/16 4:06 PM) eGFR [>60 mL/min] >60 mL/min 1 (12/21/16 4:06 PM) Calcium Lvl [8.4-10.2 mg/dL] 9.3 mg/dL 2 (12/21/16 4:06 PM) Albumin Lvl [3.4-4.8 gm/dL] 3.7 gm/dL (12/21/16 4:06 PM) Total Protein [6.0-7.6 gm/dL] 6.6 gm/dL (12/21/16 4:06 PM) Globulin [1.8-4.0 gm/dL] 2.9 gm/dL (12/21/16 4:06 PM) ALT [0-55 U/L] 17 U/L (12/21/16 4:06 PM) AST [5-34 U/L] 17 U/L (12/21/16 4:06 PM) Alk Phos [40-150 U/L] 78 U/L (12/21/16 4:06 PM) Bili Total [0.2-1.2 mg/dL] 0.3 mg/dL (12/21/16 4:06 PM) Hgb A1c [4.1-5.6 %] 5.6 % (12/21/16 4:06 PM) eAvg Glucose 114.0 mg/dL (12/21/16 4:06 PM) 1Result Comment: Multiply eGFR results by 1.21 for race.2Result Comment: Please note reference range change effective 2016.Urinalysis Most recent to oldest [Reference Range]: 1 UA Color Yellow (12/21/16 4:12 PM) UA Appear Clear (12/21/16 4:12 PM) UA pH [5.0-8.0] 6.5 (12/21/16 4:12 PM) UA Leuk Est [Negative] Negative (12/21/16 4:12 PM) UA Nitrite [Negative] Negative (12/21/16 4:12 PM) UA Protein [Negative] Negative (12/21/16 4:12 PM) UA Glucose [Negative] Negative (12/21/16 4:12 PM) UA Ketones [Negative] Negative (12/21/16 4:12 PM) UA Urobilinogen [<1.0 mg/dL] 1.0 mg/dL (12/21/16 4:12 PM) UA Bili [Negative] Negative (12/21/16 4:12 PM) UA Blood [Negative] Negative (12/21/16 4:12 PM) UA Spec Grav [1.003-1.030] 1.022 (12/21/16 4:12 PM) Type Voided (12/21/16 4:12 PM) Immunizations No data available for this section Procedures Procedure Date Related Diagnosis Body Site Colonoscopy 2006 Hernia repair Hip replacement - left Thyroidectomy Vasectomy Social History Social History Type Response Smoking Status Former smoker Assessment and Plan Extracted from: Title: Ambulatory Patient Education Author: Uriel Mckee MD Date: Family Medicine Arthritis, Nonspecific Arthritis is inflammation of a joint. This usually means pain, redness, warmth or swelling are present. One or more joints may be involved. There are a number of types of arthritis. Your caregiver may n ot be able to tell what type of arthritis you have right away. CAUSES The most common cause of arthritis is the wear and tear on the joint ( osteoarthritis). This causes damage to the cartilage, which can break down over time. The knees, hips, back and neck are most often affected by this type of arthritis. Other types of arthritis and common causes of joint pain include: Sprains and other injuries near the joint. Sometimes minor sprains and injuries cause pain and swelling that develop hours later. Rheumatoid arthritis. This affects hands, feet and knees. It usually affects both sides of your body at the same time. It is often associated with chronic ailments, fever, weight loss and general weakness. Crystal arthritis. Gout and pseudo gout can cause occasional acute severe pain, redness and swelling in the foot, ankle, or knee. Infectious arthritis. Bacteria can get into a joint through a break in overlying skin. This can cause infection of the joint. Bacteria and viruses can also spread through the blood and affect your joints. Drug, infectious and allergy reactions. Sometimes joints can become mildly painful and slightly swollen with these types of illnesses. SYMPTOMS Pain is the main symptom. Your joint or joints can also be red, swollen and warm or hot to the touch. You may have a fever with certain types of arthritis, or even feel overall ill. The joint with arthritis will hurt with movement. Stiffness is present with some types of arthritis. DIAGNOSIS Your caregiver will suspect arthritis based on your description of your symptoms and on your exam. Testing may be needed to find the type of arthritis: Blood and sometimes urine tests. X-ray tests and sometimes CT or MRI scans. Removal of fluid from the joint (arthrocentesis) is done to check for bacteria, crystals or other causes. Your caregiver (or a specialist) will numb the area over the joint with a local anestheti c, and use a needle to remove joint fluid for examination. This procedure is only minimally uncomfortable. Even with these tests, your caregiver may not be able to tell what kind of arthritis you have. Consultation with a specialist (family and divorce legal assistant) may be helpful. TREATMENT Your caregiver will discuss with you treatment specific to your type of arthritis. If the specific type cannot be determined, then the following general recommendations may apply. Treatment of severe joint pain includes: Rest. Elevation. Anti-inflammatory medication (for example, ibuprofen) may be prescribed. Avoiding activities that cause increased pain. Only take [id number] or prescription medicines for pain and discomfort as recommended by your caregiver. Cold packs over an inflamed joint may be used for 10 to 15 minutes every hour. Hot packs sometimes feel better, but do not use overnight. Do not use hot packs if you are diabetic without your caregiver's permission. A cortisone shot into arthritic joints may help reduce pain and swelling. Any acute arthritis that gets worse over the next 1 to 2 days needs to be looked at to be sure there is no joint infection. Long-term arthritis treatment involves modifying activities and lifestyle to reduce joint stress jarring. This can include weight loss. Also, exercise is needed to nourish the joint cartilage and remove waste. This helps keep the muscles around the joint strong. HOME CARE INSTRUCTIONS Do not take aspirin to relieve pain if gout is suspected. This elevates uric acid levels. Only take xxxx-fnr-[id number] or prescription medicines for pain, discomfort or fever as directed by your caregiver. Rest the joint as much as possible. If your joint is swollen, keep it elevated. Use crutches if the painful joint is in your leg. Drinking plenty of fluids may help for certain types of arthritis. Follow your caregiver's dietary instructions. Try low-impact exercise such as: Swimming. Water aerobics. Biking. Walking. Morning stiffness is often relieved by a warm shower. Put your joints through regular yxzcz-kj-fklowy. SEEK MEDICAL CARE IF: You do not feel better in 24 hours or are getting worse. You have side effects to medications, or are not getting better with treatment. SEEK IMMEDIATE MEDICAL CARE IF: You have a fever. You develop severe joint pain, swelling or redness. Many joints are involved and become painful and swollen. There is severe back pain and/or leg weakness. You have loss of bowel or bladder control. This information is not intended to replace advice given to you by your health care provider. Make sure you discuss any questions you have with your health care provider. Document Released: 11/29/2005 Document Revised: 11/12/2015 Document Reviewed: 01/17/2016 [employer] Patient Education 2016 [employer] No follow up information was provided. Extracted from: Title: Office Visit Note Author: Uriel Mckee MD Date: 12/21/16 Assessment/Plan Benign essential HTN This issue was reviewed, appears stable, and current therapy continued except as mentioned. Appropriate lab was reviewed from the most recent appropriate entry and lab was ordered if needed in the c yaakov/nursing orders, and follow up recommended generally in 90 days and no later then six months. The patient reports their blood pressure has been stable at home and is not having any significant or related problems. There has been no chest pain, chest pressure, soa/haley. Cervical radiculopathy The patient's issue is nearly or completely resolved. There is no further issues or testing desired by them at this time. Chronic hip pain This issue was reviewed, appears stable, and current therapy continued except as mentioned. Appropriate lab was reviewed from the most recent appropriate entry and lab was ordered if needed in the c yaakov/nursing orders, and follow up recommended generally in 90 days and no later then six months. Seeing and pending surgery on 01/16. IMPRESSION: 1. Finding consistent with degenerative osteoarthritic changes of the right hip as described. [1] Extensive [place] papers completed as a courtesy. Any questions or changes need to be done by Dr. Mathis. Erectile dysfunction This issue was reviewed, appears stable, and current therapy continued except as mentioned. Appropriate lab was reviewed from the most recent appropriate entry and lab was ordered if needed in the c yaakov/nursing orders, and follow up recommended generally in 90 days and no later then six months. Hypogonadism, male This issue was reviewed, appears stable, and current therapy continued except as mentioned. Appropriate lab was reviewed from the most recent appropriate entry and lab was ordered if needed in the c yaakov/nursing orders, and follow up recommended generally in 90 days and no later then six months. Sees Endocrinology. Obesity (disorder) Diet and exercise as tolerated and feasible. Consider medication when interested. Osteoarthritis This issue was reviewed, appears stable, and current therapy continued except as mentioned. Appropriate lab was reviewed from the most recent appropriate entry and lab was ordered if needed in the c yaakov/nursing orders, and follow up recommended generally in 90 days and no later then six months. Pituitary macroadenoma This issue was reviewed, appears stable, and current therapy continued except as mentioned. Appropriate lab was reviewed from the most recent appropriate entry and lab was ordered if needed in the c yaakov/nursing orders, and follow up recommended generally in 90 days and no later then six months. Sees Endocrinology and stable. Assessment/Plan Pituitary Macroadenoma , stable size in 10/2015 and 05/2015, compared to 2013. normal visual fay patient to see ophtalmology again now repeat pituitary mri and panel now if all still stable, repeat mri yearly as of now hypogonadism: secondary can be due to macroadenoma on testosterone 200 mg e0anqox check testosterone, cbc, psa today rtc in 6 months [2] IMPRESSION: 1. There are again findings compatible with macroadenoma with a hypoenhancing sellar and suprasellar mass lesion eccentric to the right. While there has not been evidence of significant interval change compared to the most immediate prior examination, when correlated with multiple prior examinations, there has been an overall slow, stepwise decrease in size of this lesion with initial measurements of this mass measured at 2.1 x 2.0 x 1.7 cm and now measuring 1.7 x 1.8 x 1.3. 2. Minimal microvascular changes. No acute intracranial abnormality demonstrated. [3] Preop general physical exam No current surgical restrictions. Lab and CXR pending. EKG shows a NSR without changes.
--- OUTSIDE RECORDS SUMMARY | 2017-07-24 08:27 | External Medical Summary | Referral Summary ---
:1955 Author Organization [facility] Address [address] [place] [address] Care Team Providers Name Role Phone Uriel Mckee Primary Care Physician Encounter [facility] [id number] Date(s): 05/11/15 - 05/11/15 [facility] [address] [place] [address] - [place] Discharge Diagnosis: Hypogonadism, male Discharge [...] 2x/Wk, # 8 Each, 4 Refill(s), Pharmacy: [facility] [id number] , 1 tabs Oral 2x/Wk Start Date: 12/30/14 Status: Orderedlosartan 50 mg oral tablet See Instructions, 1 TABS ORAL DAILY,INSTR:APPOINTMENT NEEDED PRIOR TO ADDITIONAL REFILLS., # 30 tabs, 5 Refill(s), [facility] [id number], 1 TABS ORAL DAILY,INSTR:APPOINTMENT NEEDED PRIOR TO ADDITIONAL REFILLS. Start Date: 05/19/15 Status: Orderedtestosterone cypionate 200 mg/mL intramuscular solution 200 mg 1 mL, IntraMuscular, q2wk, # 3 mL, 3 Refill(s) Start Date: 05/11/15 Status: OrderedtraMADol 50 mg oral tablet 1-2 tabs, Oral, q8hr, as needed for pain, [facility], # 60 tabs, 0 Refill(s), 1- [...] AM) Lymphocytes [20-46 %] 16 % *LOW* (05/11/15:18 AM) Monocytes [4-11 %] 8 % (05/11/15 9:18 AM) Eosinophils [0-4 %] 1 % (05/11/15:18 AM) Basophils [0-2 %] 0 % (05/11/15:18 AM) Neutro Absolute [1.90-7.00 10*3] 6.00 10*3 (05/11/15 9:18 AM) Lymph Absolute [0.80-3.30 10*3] 1.25 10*3 (05/11/15 9:18 AM) [place] Absolute [0.30-1.00 10*3] 0.65 10*3 (05/11/15 9:18 [...]
--- OUTSIDE RECORDS SUMMARY | 2017-07-24 08:27 | External Medical Summary | Referral Summary ---
:1955 Author Organization [facility] Address [address] [place] [address] Care Team Providers Name Role Phone Uriel Mckee Primary Care Physician Encounter [facility] [id number] Date(s): 11/14/16 - 11/14/16 [facility] [address] [place] [address] - [place] Discharge Diagnosis: Elevated prolactin level Discharge Diagnosis: Adenoma of pituitary Discharge Diagnosis: Hypogonadism male Discharge Disposition: 01-Home or Self Care Attending Physician: Eri Fitzgerald MD Admitting Physician: Eri Fitzgerald MD Vital Signs Most recent to oldest [Reference Range]: 1 Peripheral Pulse Rate [60-100 bpm] 75 bpm (11/14/16 10:47 AM) Blood Pressure [90-140/60-90 mmHg] 126/80 mmHg (11/14/16 10:47 AM) Problem List Condition Effective Dates Status [...] NEEDED FOR DENTIST, 0 Refill(s) Start Date: 12/2/14 Status: Orderedaspirin 81 mg, Oral, Daily, 0 Refill(s) Start Date: 04/09/14 Status: Orderedcabergoline 0.5 mg oral tablet 0.5 mg 1 tabs, Oral, 2x/Wk, # 8 Each, 4 Refill(s), [facility], patient must keep appointment, 1 tabs Oral 2x/Wk Start Date: 06/27/16 Status: Orderedlosartan 50 mg oral tablet See Instructions, TAKE 1 TABLET BY MOUTH EVERY DAY, # 30 tabs, [facility]: [facility], TAKE1 TABLET BY MOUTH EVERY DAY Start Date: 10/06/16 Status: Orderedlosartan 50 mg oral tablet See Instructions, TAKE 1 TABLET BY MOUTH EVERY DAY, # 30 tabs, [facility], TAKE1 TABLET BY MOUTH EVERY DAY Start Date: 11/10/16 Status: Orderedmeloxicam 7.5 mg oral tablet See Instructions, TAKE 1 TABLET BY MOUTH TWICE DAILY NEEDED FOR PAIN, # 60 tabs, [facility], TAKE 1 TABLET BY MOUTH TWICE DAILY NEEDED FOR PAIN Start Date: 11/10/16 Status: OrderedMobic 7.5 mg oral tablet 7.5 mg 1 tabs, Oral, BID, Pain, # 60 tabs, 0 Refill(s), [facility]acy: [facility], 1 tabsOral BID,PRN:Pain Start Date: 09/27/16 Status: Orderedtestosterone cypionate 200 mg/mL intramuscular solution 200 mg 1 mL, IntraMuscular, q2wk, # 3 mL, 3 Refill(s) Start Date: 10/25/16 Status: OrderedtraMADol 50 mg oral tablet 1-2 tabs, Oral, q6hr, as needed for pain, [place], note increase in dose and number dispensed, # 120 tabs, 0 Refill(s), 1-2 tabs Oral q8hr,PRN:as needed for pain Start Date: 09/27/16 Status: OrderedViagra 50 mg oral tablet See Instructions, TAKE 1 TABLET BY MOUTH EVERY DAY NEEDED FOR ERECTILE DYSFUNCTION, # 10 tabs, [facility] Start Date: 10/17/16 Status: Ordered Results Hematology Most recent to oldest [Reference Range]: 1 WBC [4.8-10.8 10*3/uL] 9.6 10*3/uL (11/14/16 11:12 AM) RBC [4.60-6.20] 5.26 (11/14/16 11:12 AM) Hgb [14.0-18.0 gm/dL] 17.1 gm/dL (11/14/16 11:12 AM) Hct [42.0-52.0 %] 48.8 % (11/14/16 11:12 AM) MCV [82.0-99.0 fL] 92.8 fL (11/14/16 11:12 AM) MCH [27.0-32.0 pg] 32.5 pg *HI* (11/14/16 11:12 AM) MCHC [32.0-36.0 gm/dL] 35.0 gm/dL (11/14/16 11:12 AM) RDW [11.5-14.5 %] 15.9 % *HI* (11/14/16 11:12 AM) Platelet [150-400 10*3/uL] 220 10*3/uL (11/14/16 11:12 AM) MPV [8.8-14.8 fL] 11.0 fL (11/14/16 11:12 AM) Immature Granulocytes [0.0-1.0 %] 0.2 % (11/14/16 11:12 AM) Neutrophils [51-75 %] 79 % *HI* (11/14/16 11:12 AM) Lymphocytes [20-46 %] 14 % *LOW* (11/14/16 11:12 AM) Monocytes [4-11 %] 5 % (11/14/16 11:12 AM) Eosinophils [0-4 %] 1 % (11/14/16 11:12 AM) Basophils [0-2 %] 0 % (11/14/16 11:12 AM) Neutro Absolute [1.90-7.00] 7.59 *HI* (11/14/16 11:12 AM) Lymph Absolute [0.80-3.30] 1.36 (11/14/16 11:12 AM) [place] Absolute [0.30-1.00] 0.50 (11/14/16 11:12 AM) Eos Absolute [0.00-0.50] 0.08 (11/14/16 11:12 AM) Baso Absolute [0.00-0.20] 0.02 (11/14/16 11:12 AM) Chemistry Most recent to oldest [Reference Range]: 1 LH [0.6-12.1 mIU/mL] 0.2 mIU/mL *LOW* (11/14/16 11:12 AM) FSH [1.0-12.0 mIU/mL] 0.3 mIU/mL *LOW* (11/14/16 11:12 AM) Testosterone Tot [221-716 ng/dL] 1259 ng/dL *HI* (11/14/16 11:12 AM) Prolactin [3.5-19.4 ng/mL] 9.9 ng/mL (11/14/16 11:12 AM) PSA (wihout Reflex Free) [0.0-4.5 ng/mL] 0.9 ng/mL 1 (11/14/16 11:12 AM) Cortisol AM [3-20 mcg/dL] 5 mcg/dL (11/14/16 11:12 AM) T4 Free [0.7-1.5 ng/dL] 0.9 ng/dL (11/14/16 11:12 AM) TSH [0.35-4.94] 2.77 (11/14/16 11:12 AM) 1Result Comment: [facility] PSA Best Practice Guidelines: Age-Adjusted PSA Values by Ethnic Group Age Range Asians - Caucasians Americans 40-49 0-2.0 0-2.0 0-2.5 50-59 0-3.0 0-4.0 0-3.5 60-69 0-4.0 0-4.5 0-4.5 70-79 0-5.0 0-5.5 0-6.5 Immunizations No data available for this section Procedures Procedure Date Related Diagnosis Body Site Collection of venous blood by venipuncture 11/14/16 Colonoscopy 2006 Hernia repair Hip replacement - left Thyroidectomy Vasectomy Social History Social History Type Response Smoking Status Former smoker Assessment and Plan No data available for this section
--- OUTSIDE RECORDS SUMMARY | 2017-07-24 08:27 | External Medical Summary | Referral Summary ---
:1955 Author Organization [facility] Address [address] [place] [address] Care Team Providers Name Role Phone Uriel Mckee Primary Care Physician Encounter [facility] [id number] Date(s): 08/16/15 - 08/16/15 [facility] [address] [place] [address] - [place] Discharge Diagnosis: Hypogonadism male Discharge Diagnosis: Pituitary macroadenoma Discharge Disposition: 01-Home or Self Care Attending Physician: Eri Fitzgerald MD Admitting Physician: Eri Fitzgerald MD Vital Signs Most recent to oldest [Reference Range]: 1 Peripheral Pulse Rate [60-100 bpm] 78 bpm (08/16/15 8:39 AM) Blood Pressure [90-140/60-90 mmHg] 123/91 mmHg (08/16/15 8:39 AM) Problem List Condition Effective Dates Status [...] 2x/Wk, # 8 Each, 4 Refill(s), Pharmacy: [facility] [id number] , 1 tabs Oral 2x/Wk Start Date: 12/30/14 Status: Orderedlosartan 50 mg oral tablet See Instructions, 1 TABS ORAL DAILY,INSTR:APPOINTMENT NEEDED PRIOR TO ADDITIONAL REFILLS., # 30 tabs, 5 Refill(s), eRx: [facility] [id number], 1 TABS ORAL DAILY,INSTR:APPOINTMENT NEEDED PRIOR TO ADDITIONAL REFILLS. Start Date: 05/19/15 Status: Orderedtestosterone cypionate 200 mg/mL intramuscular solution 200 mg 1 mL, IntraMuscular, q2wk, # 3 mL, 3 Refill(s) Start Date: 05/11/15 Status: OrderedtraMADol 50 mg oral tablet 1-2 tabs, Oral, q8hr, as needed for [facility], [facility] Refill(s), 1- 2 tabs Oral q8hr,PRN:as needed for pain Start Date: 09/03/14 Status: Ordered Results No data available for this section Immunizations No data available for this section Procedures Procedure Date Related Diagnosis Body Site Colonoscopy 2006 Hernia repair Hip replacement - left Thyroidectomy Vasectomy Social History Social History Type Response Smoking Status Former smoker Assessment and Plan Extracted from: Title: Office Visit Note Author: Eri Fitzgerald MD Date: 08/16/15 Assessment/Plan Pituitary Macroadenoma , stable size in 05/2015, compared to 10/2014. still 2.1 cm continue cabergoline 0.5 bi-weekly will repeat pituitary mri in 10/2015, 6 months since his last mri also repeat pituitarypanel patient to see ophtalmology in the next 2 months will decide on further management according to ophtalmology notes and mri results hypogonadism: secondary can be due to macroadenoma on testosterone 200 mg [id number] testosterone 540 now cbc, psa q1year AVE by pcp q1year rtc in 3 months with cbc and testosterone
--- OUTSIDE RECORDS SUMMARY | 2017-07-24 08:27 | External Medical Summary | Referral Summary ---
:1955 Author Organization [facility] Address [address] [place] [address] Care Team Providers Name Role Phone Uriel Mckee Primary Care Physician Encounter [facility] [id number] Date(s): 05/11/15 - 05/11/15 [facility] [address] [place] [address] - [place] Discharge Diagnosis: Hypogonadism, male Discharge [...] Resolved Hypertension(Confirmed) Active Morbid obesity(Confirmed) Active patient Obesity (disorder)(Confirmed) Active Obesity(Confirmed) Active Osteoarthritis(Confirmed) Active Pituitary macroadenoma(Confirmed) Active Psychologic conversion disorder Active (finding)(Confirmed) Sleep apnea (disorder)(Confirmed) Active Sleep apnea(Confirmed) Active Thyroid disease(Confirmed) Active Allergies, Adverse Reactions, Alerts Substance Reaction Severity Status Duricef Active Medications amoxicillin 500 mg oral tablet tabs, Oral, Once, NEEDED FOR DENTIST, 0 Refill(s) Start Date: 10/06/14 Status: Orderedaspirin 81 mg, Oral, Daily, 0 Refill(s) Start Date: 04/09/14 Status: Orderedcabergoline 0.5 mg oral tablet 0.5 mg 1 tabs, Oral, 2x/Wk, # 8 Each, 4 Refill(s), Pharmacy: [id number], patient must keep appointment, 1 tabs Oral 2x/Wk Start Date: 09/13/15 Status: Orderedlosartan 50 mg oral tablet 50 mg 1 tabs, Oral, Daily, Needs med check please., # 30 tabs, 0 Refill(s), Pharmacy: [id number], 1 tabs Oral Daily,x30 days,Instr:Needs med check please. Start Date: 11/19/15 Stop Date: 12/19/15 Status: Orderedtestosterone cypionate 200 mg/mL intramuscular solution 200 mg 1 mL, IntraMuscular, q2wk, # 3 mL, 3 Refill(s) Start Date: 05/11/15 Status: OrderedtraMADol 50 mg oral tablet 1-2 tabs, Oral, q8hr, as needed for pain, [facility], # 60 tabs, 0 Refill(s), 1- 2 [...] 9:18 AM) Platelet [150-400 10*3/uL] 253 10*3/uL (05/11/15:18 AM) MPV [8.8-14.8 fL] 10.8 fL (05/11/15:18 AM) Immature Granulocytes [0.0-1.0 %] 0.2 % (05/11/1518 AM) Neutrophils [51-75 %] 75 % (05/11/15:18 AM) Lymphocytes [20-46 %] 16 % *LOW* (05/11/15:18 AM) Monocytes [4-11 %] 8 % (05/11/15:18 AM) Eosinophils [0-4 %] 1 % (05/11/15:18 AM) Basophils [0-2 %] 0 % (05/11/15:18 AM) Neutro Absolute [1.90-7.00 10*3] 6.00 10*3 (05/11/15 9:18 AM) Lymph Absolute [0.80-3.30 10*3] 1.25 10*3 (05/11/15 9:18 AM) [place] Absolute [0.30-1.00 10*3] 0.65 10*3 (05/11/15 9:18 [...]
--- OUTSIDE RECORDS SUMMARY | 2017-07-24 08:27 | External Medical Summary | Referral Summary ---
:1955 Author Organization [facility] Address [address] [place] [address] Care Team Providers Name Role Phone Uriel Mckee Primary Care Physician Encounter [facility] [id number] Date(s): 05/11/15 - 05/11/15 [facility] [address] [place] [address] - [place] Discharge Diagnosis: Hypogonadism, male Discharge [...] 8 Each, 4 Refill(s), Pharmacy: [facility] [id number] , 1 tabs Oral 2x/Wk Start Date: 12/30/14 Status: Orderedlosartan 50 mg oral tablet See Instructions, 1 TABS ORAL DAILY,INSTR:APPOINTMENT NEEDED PRIOR TO ADDITIONAL REFILLS., # 30 tabs, 5 Refill(s), [id number], 1 TABS ORAL DAILY,INSTR:APPOINTMENT NEEDED PRIOR TO ADDITIONAL REFILLS. Start Date: 05/19/15 Status: Orderedtestosterone cypionate 200 mg/mL intramuscular solution 200 mg 1 mL, IntraMuscular, q2wk, # 3 mL, 3 Refill(s) Start Date: 05/11/15 Status: OrderedtraMADol 50 mg oral tablet 1-2 tabs, Oral, q8hr, as needed for pain, [facility], # 60 tabs, 0 Refill(s), 1- [...] [0.80-3.30 10*3] 1.25 10*3 (05/11/15 9:18 AM) [place] Absolute [0.30-1.00 10*3] 0.65 10*3 (05/11/15 9:18 [...]
--- OUTSIDE RECORDS SUMMARY | 2017-07-24 08:27 | External Medical Summary | Referral Summary ---
:1955 Author Organization [facility] Address [address] [place] [address] [place] [address] Care Team Providers Name Role Phone Uriel Mckee Primary Care Physician Encounter [facility] Date(s): 04/05/15 - 04/05/15 [facility] [address] [place] [address] Discharge Disposition: 01-Home or Self Care Attending Physician: Uriel Mckee MD Admitting Physician: Uriel cMkee MD Vital Signs Most recent to oldest [Reference Range]: 1 Blood Pressure [90-140/60-90 mmHg] 120/70 mmHg (04/05/15 10:20 AM) Problem List Condition Effective Dates Status [...] 2x/Wk, # 8 Each, 4 Refill(s), Pharmacy: [id number], patient must keep appointment, 1 tabs Oral 2x/Wk Start Date: 09/13/15 Status: Orderedlosartan 50 mg oral tablet See Instructions, 1 TABS ORAL DAILY,INSTR:APPOINTMENT NEEDED PRIOR TO ADDITIONAL REFILLS., # 30 tabs, 5 Refill(s), eRx: [id number], 1 TABS ORAL DAILY,INSTR:APPOINTMENT NEEDED PRIOR TO ADDITIONAL REFILLS. Start Date: 05/19/15 Status: Orderedtestosterone cypionate 200 mg/mL intramuscular solution 200 mg 1 mL, IntraMuscular, q2wk, # 3 mL, 3 Refill(s) Start Date: 05/11/15 Status: OrderedtraMADol 50 mg oral tablet 1-2 tabs, Oral, q8hr, as needed for pain, [facility], # 60 tabs, 0 Refill(s), 1- 2 tabs Oral q8hr,PRN:as needed for pain Start Date: 09/03/14 Status: Ordered Results Microbiology Reports TEST:Group A Strep Culture STATUS:Auth (Verified) BODY SITE: SOURCE:Throat COLLECTED DATE/TIME:04/05/15 10:50 AMGroup A Strep CultureNo Group A Strep ( Strep pyogenes) isolated Immunizations No data available for this section Procedures Procedure Date Related Diagnosis Body Site Colonoscopy 2006 Hernia repair Hip replacement - left Thyroidectomy Vasectomy Social History Social History Type Response Smoking Status Former smoker Assessment and Plan Extracted from: Title: Ambulatory Patient Education Author: Uriel Mckee MD Date: Anesthesiology Cervical Radiculopathy Cervical radiculopathy happens when a nerve in the neck is pinched or bruised by a slipped (herniated ) disk or by arthritic changes in the bones of the cervical spine. This can occur due to an injury o r as part of the normal aging process. Pressure on the cervical nerves can cause pain or numbness that runs from your neck all the way down into your arm and fingers. CAUSES There are many possible causes, including: Injury. Muscle tightness in the neck from overuse. Swollen, painful joints (arthritis ). Breakdown or degeneration in the bones and joints of the spine ( spondylosis ) due to aging. Bone spurs that may develop near the cervical nerves. SYMPTOMS Symptoms include pain, weakness, or numbness in the affected arm and hand. Pain can be severe or irritating. Symptoms may be worse when extending or turning the neck. DIAGNOSIS Your caregiver will ask about your symptoms and do a physical exam. He or she may test your strength and reflexes. X-rays, CT scans, and MRI scans may be needed in cases of injury or if the symptoms do not go away after a period of time. Electromyography (EMG) or nerve conduction testing may be done to study how your nerves and muscles are working. TREATMENT Your caregiver may recommend certain exercises to help relieve your symptoms. Cervical radiculopathy can, and often does, get better with time and treatment. If your problems continue, treatment options may include: Wearing a soft collar for short periods of time. Physical therapy to strengthen the neck muscles. Medicines, such as nonsteroidal anti-inflammatory drugs (NSAIDs), oral corticosteroids, or spinal injections. Surgery. Different types of surgery may be done depending on the cause of your problems. HOME CARE INSTRUCTIONS Put ice on the affected area. Put ice in a plastic bag. Place a towel between your skin and the bag. Leave the ice on for 15-20 minutes, 03-04 times a day or as directed by your caregiver. If ice does not help, you can try using heat. Take a warm shower or bath, or use a hot water bottle as directed by your caregiver. You may try a gentle neck and shoulder massage. Use a flat pillow when you sleep. Only take nymb-yyv-fbbzsrd or prescription medicines for pain, discomfort , or fever as directed by your caregiver. If physical therapy was prescribed, follow your caregiver's directions. If a soft collar was prescribed, use it as directed. SEEK IMMEDIATE MEDICAL CARE IF: Your pain gets much worse and cannot be controlled with medicines. You have weakness or numbness in your hand, arm, face, or leg. You have a high fever or a stiff, rigid neck. You lose bowel or bladder control (incontinence ). You have trouble with walking, balance, or speaking. MAKE SURE YOU: Understand these instructions. Will watch your condition. Will get help right away if you are not doing well or get worse. Document Released: 07/17/2002 Document Revised: 01/13/2013 Document Reviewed: 06/04/2012 [facility] Patient Information 2014 [employer] [facility]. No follow up information was provided. Extracted from: Title: Office Visit Note Author: Uriel Mckee MD Date: 04/05/15 Assessment/Plan Cervical radiculopathy The patient's issue is nearly or completely resolved. There is no further issues or testing desired by them at this time. Hypertension This issue is stable and appropriate refills, lab, and f/u have been discussed. The patient reports their blood pressure has been stable at home and is not having any significant or related problems. There has been no chest pain, chest pressure, soa/haley. Sore throat, Sore throat Zpack. Phen w/cod offered and declined. A work/school note was offered and deferred by the patient. Strep scr pending. Ordered: Rapid Strep
--- OUTSIDE RECORDS SUMMARY | 2017-07-24 08:27 | External Medical Summary | Referral Summary ---
:1955 Author Organization [facility] Address [address] [place] [address] Care Team Providers Name Role Phone Uriel Mckee Primary Care Physician Encounter [facility] [id number] Date(s): 11/16/15 - 11/16/15 [facility] [address] [place] [address] - [place] Discharge Diagnosis: Pituitary macroadenoma Discharge Diagnosis: Hypogonadism male Discharge Disposition: 01-Home or Self Care Attending Physician: Eri Fitzgerald MD Admitting Physician: Eri Fitzgerald MD Vital Signs Most recent to oldest [Reference Range]: 1 Peripheral Pulse Rate [60-100 bpm] 82 bpm (11/16/15 8:24 AM) Blood Pressure [90-140/60-90 mmHg] 120/82 mmHg (11/16/15 8:24 AM) Problem List Condition Effective Dates Status [...] 2x/Wk, # 8 Each, 4 Refill(s), [id number], patient must keep appointment, 1 tabs Oral 2x/Wk Start Date: 09/13/15 Status: Orderedlosartan 50 mg oral tablet See Instructions, 1 TABS ORAL DAILY,INSTR:APPOINTMENT NEEDED PRIOR TO ADDITIONAL REFILLS., # 30 tabs, 5 Refill(s), [id number], 1 TABS ORAL DAILY,INSTR:APPOINTMENT NEEDED PRIOR TO [...] oldest [Reference Range]: 1 WBC [4.8-10.8 10*3/uL] 10.4 10*3/uL (11/16/15 8:51 AM) RBC [4.60-6.20] 5.35 (11/16/15 8:51 AM) Hgb [14.0-18.0 gm/dL] 16.4 gm/dL (11/16/15 8:51 AM) Hct [42.0-52.0 %] 48.2 % (11/16/15 8:51 AM) MCV [82.0-99.0 fL] 90.1 fL (11/16/15 8:51 AM) MCH [27.0-32.0 pg] 30.7 pg (11/16/15 8:51 AM) MCHC [32.0-36.0 gm/dL] 34.0 gm/dL (11/16/15 8:51 AM) RDW [11.5-14.5 %] 14.7 % *HI* (11/16/15 8:51 AM) Platelet [150-400 10*3/uL] 269 10*3/uL (11/16/15 8:51 AM) MPV [8.8-14.8 fL] 10.5 fL (11/16/15 8:51 AM) Immature Granulocytes [0.0-1.0 %] 0.4 % (11/16/15 8:51 AM) Neutrophils [51-75 %] 79 % *HI* (11/16/15 8:51 AM) Lymphocytes [20-46 %] 12 % *LOW* (11/16/15 8:51 AM) Monocytes [4-11 %] 8 % (11/16/15 8:51 AM) Eosinophils [0-4 %] 1 % (11/16/15 8:51 AM) Basophils [0-2 %] 0 % (11/16/15 8:51 AM) Neutro Absolute [1.90-7.00 10*3] 8.23 10*3 *HI* (11/16/15 8:51 AM) Lymph Absolute [0.80-3.30 10*3] 1.24 10*3 (11/16/15 8:51 AM) [place] Absolute [0.30-1.00 10*3] 0.79 10*3 (11/16/15 8:51 AM) [place] Absolute [0.00-0.50 10*3] 0.08 10*3 (11/16/15 8:51 AM) Baso Absolute [0.00-0.20 10*3] 0.02 10*3 (11/16/15 8:51 AM) Chemistry Most recent to oldest [Reference Range]: 1 LH [0.6-12.1 mIU/mL] 1.0 mIU/mL (11/16/15 8:51 AM) FSH [1.0-12.0 mIU/mL] 1.5 mIU/mL (11/16/15 8:51 AM) Testosterone Tot [221-716 ng/dL] 417 ng/dL (11/16/15 8:51 AM) Prolactin [3.5-19.4 ng/mL] 6.1 ng/mL (11/16/15 8:51 AM) PSA (wihout Reflex Free) [0.0-4.5 ng/mL] 0.8 ng/mL 1 (11/16/15 8:51 AM) Cortisol AM [3-20 mcg/dL] 8 mcg/dL (11/16/15 8:51 AM) T4 Free [0.7-1.5 ng/dL] 1.0 ng/dL (11/16/15 8:51 AM) TSH [0.35-4.94] 2.60 (11/16/15 8:51 AM) 1Result Comment: AUA PSA Best Practice Guidelines: Age-Adjusted PSA Values by Ethnic Group Age Range Asians - Caucasians Americans 40-49 0-2.0 0-2.0 0-2.5 50-59 0-3.0 0-4.0 0-3.5 60-69 0-4.0 0-4.5 0-4.5 70-79 0-5.0 0-5.5 0-6.5 Immunizations No data available for this section Procedures Procedure Date Related Diagnosis Body Site Collection of venous blood by venipuncture 11/16/15 Colonoscopy 2006 Hernia repair Hip replacement - left Thyroidectomy Vasectomy Social History Social History Type Response Smoking Status Former smoker Assessment and Plan No data available for this section
--- OUTSIDE RECORDS SUMMARY | 2017-07-24 08:27 | External Medical Summary | Referral Summary ---
:1955 Author Organization [facility] Address [address] [place] [address] Care Team Providers Name Role Phone Uriel Mckee Primary Care Physician Encounter [facility] [id number] Date(s): 05/11/15 - 05/11/15 [facility] [address] [place] [address] - [place] Discharge Diagnosis: Hypogonadism, male Discharge [...] 2x/Wk, # 8 Each, 4 Refill(s), Pharmacy: [facility] [id number] , 1 tabs Oral 2x/Wk Start Date: 12/30/14 Status: Orderedlosartan 50 mg oral tablet See Instructions, 1 TABS ORAL DAILY,INSTR:APPOINTMENT NEEDED PRIOR TO ADDITIONAL REFILLS., # 30 tabs, 5 Refill(s), [facility] [id number], 1 TABS ORAL DAILY,INSTR:APPOINTMENT NEEDED PRIOR TO ADDITIONAL REFILLS. Start Date: 05/19/15 Status: Orderedtestosterone cypionate 200 mg/mL intramuscular solution 200 mg 1 mL, IntraMuscular, q2wk, # 3 mL, 3 Refill(s) Start Date: 05/11/15 Status: OrderedtraMADol 50 mg oral tablet 1-2 tabs, Oral, q8hr, as needed for pain, [facility], # 60 tabs, 0 Refill(s), 1- 2 [...] [0.80-3.30 10*3] 1.25 10*3 (05/11/15 9:18 AM) [place] Absolute [0.30-1.00 10*3] 0.65 10*3 (05/11/15 9:18 [...]
--- OUTSIDE RECORDS SUMMARY | 2017-07-24 08:27 | External Medical Summary | Referral Summary ---
:1955 Author Organization [facility] [place] [address] Care Team Providers Name Role Phone Uriel Mckee Primary Care Physician Encounter [facility] Date(s): 09/27/16 - 09/27/16 [facility] [place] [address] Discharge Diagnosis: Benign essential HTN Discharge Diagnosis: Erectile dysfunction Discharge Diagnosis: Acute back pain with sciatica Discharge Diagnosis: Chronic hip pain Discharge Diagnosis: Morbid obesity Discharge Diagnosis: Cervical radiculopathy Discharge Disposition: -Home or Self Care Attending Physician: Uriel Mckee MD Admitting Physician: Uriel Mckee MD Vital Signs Most recent to oldest [Reference Range]: 1 Blood Pressure [90-140/60-90 mmHg] 120/80 mmHg (09/27/16 11:32 AM) Problem List Condition Effective Dates Status [...] 2x/Wk, # 8 Each, 4 Refill(s), Pharmacy: [id number], patient must keep appointment, 1 tabs Oral 2x/Wk Start Date: 06/27/16 Status: Orderedlosartan 50 mg oral tablet See Instructions, TAKE 1 TABLET BY MOUTH EVERY DAY, # 30 tabs, 5 Refill(s), eRx : [facility] [id number], TAKE 1 TABLET BY MOUTH EVERY DAY Start Date: 03/24/16 Status: OrderedMobic 7.5 mg oral tablet 7.5 mg 1 tabs, Oral, BID, Pain, # 60 tabs, 0 Refill(s), Pharmacy: [facility] [id number], 1 tabsOral BID,PRN:Pain Start Date: 09/27/16 Status: Orderedtestosterone cypionate 200 mg/mL intramuscular solution 200 mg 1 mL, IntraMuscular, q2wk, # 3 mL, 3 Refill(s) Start Date: 04/17/16 Status: OrderedtraMADol 50 mg oral tablet 1-2 tabs, Oral, q6hr, as needed for pain, [place], note increase in dose and number dispensed, # 120 tabs, 0 Refill(s), 1-2 tabs Oral q8hr,PRN:as needed for pain Start Date: 09/27/16 Status: OrderedViagra 50 mg oral tablet 50 mg 1 tabs, Oral, Daily, as needed for erectile dysfunction, # 10 tabs, 0 Refill(s), Pharmacy: [id number], 1 tabs Oral Daily,PRN:as needed for erectile dysfunction Start Date: 09/18/16 Status: Ordered Results No data available for this section Immunizations No data available for this section Procedures Procedure Date Related Diagnosis Body Site Colonoscopy 2006 Hernia repair Hip replacement - left Thyroidectomy Vasectomy Social History Social History Type Response Smoking Status Former smoker Assessment and Plan Extracted from: Title: Ambulatory Patient Education Author: Uriel Mckee MD Date: 09/27 Family Medicine Arthritis, Nonspecific Arthritis is inflammation [...] arthritis you have. Consultation with a specialist (felt puller) may be helpful. TREATMENT Your caregiver will discuss with you treatment specific to your type of arthritis. If the specific type cannot be determined, then the following general recommendations may apply. Treatment of severe joint pain includes: Rest. Elevation. Anti-inflammatory medication (for example, ibuprofen) may be prescribed. Avoiding activities that cause increased pain. Only take znrt-nyl-jihirwl or prescription medicines for pain and discomfort [...] This elevates uric acid levels. Only take sgfu-ksg-akbiboi or prescription medicines for pain, discomfort or [...] warm shower. Put your joints through regular zognn-ab-pwtfkp. SEEK MEDICAL CARE IF: You do not [...] 11/29/2005 Document Revised: 11/12/2015 Document Reviewed: 01/17/2016 [employer] Patient Education 2016 [employer] No follow up information was provided. Extracted from: Title: Office Visit Note Author: Uriel Mckee MD Date: 09/27/16 Assessment/Plan Acute back pain with sciatica Trial of mobic 7.5mg po bid prn, not to use otc nsaids with mobic. Tramadol to 50mg po qid prn, number 120 every 30 days. IMPRESSION: 1. Rather advanced hypertrophic facet disease L4-L5 and L5-S1. 2. Minimal hypertrophic lipping of the endplates noted throughout. [1] Benign essential HTN This issue was reviewed, appears stable, and current therapy continued except as mentioned. Appropriate lab was reviewed from the most recent appropriate entry and lab was order ed if needed in the cpoe/nursing orders, and follow up recommended generally in 90 days and no later then six months. The patient reports their blood pressure has been stable at home and is not having any significant or related problems. There has been no chest pain, chest pressure, soa/haley. Cervical radiculopathy This issue was reviewed, appears stable, and current therapy continued except as mentioned. Appropriate lab was reviewed from the most recent appropriate entry and lab was ordered if needed in the cpoe/nursing orders, and follow up recommended generally in 90 days and no later then six months. Chronic hip pain Seeabove. To Dr. Mathis for evaluation at his request. IMPRESSION: 1. Finding consistent with degenerative osteoarthritic changes of the right hip as described. [2] Erectile dysfunction This issue was reviewed, appears stable, and current therapy continued except as mentioned. Appropriate lab was reviewed from the most recent appropriate entry and lab was o rdered if needed in the cpoe/nursing orders, and follow up recommended generally in 90 days and no later then six months. Morbid obesity Diet and exercise as tolerated and feasible. Consider medication when interested. A work/school note was offered and deferred by the patient. Forms completed as courtesy. He is utd on all the related health issues.
--- OUTSIDE RECORDS SUMMARY | 2017-07-24 08:28 | External Medical Summary | Referral Summary ---
:1955 Author Organization [facility] [address] [place] [address] Care Team Providers Name Role Phone Uriel Mckee Primary Care Physician Encounter [facility] Date(s): 01/10/16 - 01/10/16 [facility] [address] [place] [address] Discharge Disposition: 01-Home or Self Care Attending Physician: Uriel Mckee MD Admitting Physician: Uriel Mckee MD Vital Signs Most recent to oldest [Reference Range]: 1 Blood Pressure [90-140/60-90 mmHg] 120/70 mmHg (01/10/16 9:02 AM) Problem List Condition Effective Dates Status [...] 2x/Wk, # 8 Each, 4 Refill(s), Pharmacy: [id number], patient must keep appointment, 1 tabs Oral 2x/Wk Start Date: 09/13/15 Status: Orderedlosartan 50 mg oral tablet 50 mg 1 tabs, Oral, Daily, Last fill. Must keep appt for further refills., # 30 tabs, 0 Refill(s), Pharmacy: [facility] [id number], 1 tabs Oral Daily,x30 days,Instr:Last fill. Must keep appt for further refills. Start Date: 12/24/15 Stop Date: 01/23/16 Status: Orderedlosartan 50 mg oral tablet See Instructions, TAKE 1 TABLET BY MOUTH ONCE DAILY, # 90 tabs, 1 Refill(s), eRx : [facility] [id number], TAKE 1 TABLET BY MOUTH ONCE DAILY Start Date: 01/10/16 Status: Orderedtestosterone cypionate 200 mg/mL intramuscular solution 200 mg 1 mL, IntraMuscular, q2wk, # 3 mL, 3 Refill(s) Start Date: 05/11/15 Status: OrderedtraMADol 50 mg oral tablet 1-2 tabs, Oral, q8hr, as needed for pain, [facility], # 60 tabs, 0 Refill(s), 1- 2 tabs Oral q8hr,PRN:as needed for pain Start Date: 09/03/14 Status: Ordered Results No data available for this section Immunizations No data available for this section Procedures Procedure Date Related Diagnosis Body Site Destruction (eg, laser surgery, electrosurgery, 01/10/16 cryosurgery, chemosurgery, surgical curettement), premalignant lesions (eg, actinic keratoses); first lesion Colonoscopy 2005 Hernia repair Hip replacement - left Thyroidectomy Vasectomy Social History Social History Type Response Smoking Status Former smoker Assessment and Plan Extracted from: Title: Ambulatory Patient Education Author: Uriel Mckee MD Date: Family Medicine Actinic Keratosis Actinic keratosis is a precancerous growth on the skin. This means it could develop into skin cancer if it is not treated. About 1% of actinic keratoses turn into skin cancer within a year. It is import ant to have all such growths removed to prevent them from developing into skin cancer. CAUSES Actinic keratosis is caused by getting too much ultraviolet (UV) radiation from the sun or other UV light sources. RISK FACTORS Factors that increase your chances of getting actinic keratosis include: Having light-colored skin and blue eyes. Having blonde or red hair. Spending a lot of time in the sun. Age. The risk of actinic keratosis increases with age. SYMPTOMS Actinic keratosis growths look like scaly, rough spots of skin. They can be as small as a pinhead or as big as a quarter. They may itch, hurt, or feel sensitive. Sometimes there is a little tag of pink or lopes skin growing off them. In some cases, actinic keratoses are easier felt than seen. They do not go away with the use of moisturizing lotions or creams. Actinic keratoses appear most often on area s of skin that get a lot of sun exposure. These areas include the: Scalp. Face. Ears. Lips. Upper back. Backs of the hands. Forearms. DIAGNOSIS Your health care provider can usually tell what is wrong by performing a physical exam. A tissue sample (biopsy) may also be taken and examined under a microscope. TREATMENT Actinic keratosis can be treated several ways. Most treatments can be done in your health care provider's office. Treatment options may include: Curettage. A tool is used to gently scrape off the growth. Cryosurgery. Liquid nitrogen is applied to the growth to freeze it. The growth eventually falls off the skin. Medicated creams, such as 5-fluorouracil or imiquimod. The medicine destroys the cells in the growth. Chemical peels. Chemicals are applied to the growth and the outer layers of skin are peeled off. Photodynamic therapy. A drug that makes your skin more sensitive to light is applied to the skin. A strong, blue light is aimed at the skin and destroys the growth. PREVENTION To prevent future sun damage: Try to avoid the sun between 10:00 a.m. and 4:00 p.m. when it is the strongest. Use a sunscreen or sunblock with SPF 30 or greater. Apply sunscreen at least 30 minutes before exposure to the sun. Always wear protective hats, clothing, and sunglasses with UV protection. Avoid medicines, herbs, and foods that increase your sensitivity to sunlight. Avoid tanning beds. HOME CARE INSTRUCTIONS If your skin was covered with a bandage, change and remove the bandage as directed by your health care provider. Keep the treated area dry as directed by your health care provider. Apply any creams as prescribed by your health care provider. Follow the directions carefully. Check your skin regularly for any changes. Visit a skin doctor (ladle watcher) every year for a skin exam. SEEK MEDICAL CARE IF: Your skin does not heal and becomes irritated, red, or bleeds. You notice any changes or new growths on your skin. This information is not intended to replace advice given to you by your health care provider. Make sure you discuss any questions you have with your health care provider. Document Released: 01/18/2010 Document Revised: 03/08/2015 Document Reviewed: 12/02/2012 ExitCare Patient Information 2015 [employer]. No follow up information was provided. Extracted from: Title: Office Visit Note Author: Uriel Mckee MD Date: 01/10/16 Assessment/Plan Actinic keratosis Cryo ten seconds x2. Routine wound care discussed. The patient was offered and/or directed to a specialist for this issue. The patient refused or at least deferred any referral at this time. Recheck in 30 days if not completely resolved or soonerprn. Essential hypertension (disorder) This issue was reviewed, appears stable, and [...] been no chest pain, chest pressure, soa/haley. Refill meds. Ordered: Comprehensive Metabolic Panel Urinalysis with Culture if Indicated Obesity (disorder) Diet and exercise as tolerated and feasible. Consider medication when interested. Monitor forgb disease with his wt loss was discussed. Pituitary macroadenoma This issue was reviewed, appears stable, and current therapy continued except as mentioned. Appropriate lab was reviewed from the most recent appropriate entry and lab was ord ered if needed in the cpoe/nursing orders, and follow up recommended generally in 90 days and no later then six months. Seeing Endo and stable. Lab pending. Orders: losartan, See Instructions, TAKE 1 TABLET BY MOUTH ONCE DAILY, # 90 tabs, 1 Refill(s), eRx: [facility] [id number], TAKE 1 TABLET BY MOUTH ONCE DAILY Prostate Specific Antigen
--- OUTSIDE RECORDS SUMMARY | 2017-07-24 08:28 | External Medical Summary | Referral Summary ---
:1955 Author Organization [facility] Address [address] [place] [address] Care Team Providers Name Role Phone Uriel Mckee Primary Care Physician Encounter [facility] [id number] Date(s): 08/16/15 - 08/16/15 [facility] [address] [place] [address] - [place] Discharge Diagnosis: Hypogonadism male [...] 2x/Wk, # 8 Each, 4 Refill(s), [facility] [place] [id number], patient must keep appointment, 1 tabs Oral 2x/Wk Start Date: 02/02/16 Status: Orderedlosartan 50 mg oral tablet See Instructions, TAKE 1 TABLET BY MOUTH EVERY DAY, # 30 tabs, [facility] [place] [id number], TAKE1 TABLET BY MOUTH EVERY DAY Start Date: 02/23/16 Status: Orderedtestosterone cypionate 200 mg/mL intramuscular solution 200 mg 1 mL, IntraMuscular, q2wk, # 3 mL, 3 Refill(s) Start Date: 05/11/15 Status: OrderedtraMADol 50 mg oral tablet 1-2 tabs, Oral, q8hr, as needed for pain, [facility], # 60 tabs, 0 Refill(s), 1- [...] due to macroadenoma on testosterone 200 mg [id number] testosterone 540 now cbc, psa q1year AVE by pcp q1year rtc in 3 months with cbc and testosterone
--- OUTSIDE RECORDS SUMMARY | 2017-07-24 08:28 | External Medical Summary | Referral Summary ---
:1955 Author Organization [facility] Address [address] [place] [address] Care Team Providers Name Role Phone Uriel Mckee Primary Care Physician Encounter [facility] [id number] Date(s): 05/11/15 - 05/11/15 [facility] [address] [place] [address] - [place] Discharge Diagnosis: Hypogonadism, male Discharge [...] 2x/Wk, # 8 Each, 4 Refill(s), Pharmacy: [facility] [id number] , 1 tabs Oral 2x/Wk Start Date: 12/30/14 Status: Orderedlosartan 50 mg oral tablet See Instructions, 1 TABS ORAL DAILY,INSTR:APPOINTMENT NEEDED PRIOR TO ADDITIONAL REFILLS., # 30 tabs, 5 Refill(s), [facility] [id number], 1 TABS ORAL DAILY,INSTR:APPOINTMENT NEEDED PRIOR TO ADDITIONAL REFILLS. Start Date: 05/19/15 Status: Orderedtestosterone cypionate 200 mg/mL intramuscular solution 200 mg 1 mL, IntraMuscular, q2wk, # 3 mL, 3 Refill(s) Start Date: 05/11/15 Status: OrderedtraMADol 50 mg oral tablet 1-2 tabs, Oral, q8hr, as needed for pain, [facility], # 60 tabs, 0 Refill(s), [...] [0.80-3.30 10*3] 1.25 10*3 (05/11/15 9:18 AM) [place] [facility] [0.30-1.00 10*3] 0.65 10*3 (05/11/15 9:18 [...]
--- OUTSIDE RECORDS SUMMARY | 2017-07-24 08:28 | External Medical Summary | Referral Summary ---
:1955 Author Organization [facility] [place] [address] Care Team Providers Name Role Phone Uriel Mckee Primary Care Physician Encounter [facility] Date(s): 09/18/16 - 09/18/16 [facility] [place] [address] Discharge Diagnosis: Sleep apnea Discharge Diagnosis: Thyroid disease Discharge Diagnosis: Hypogonadism, male Discharge Diagnosis: Osteoarthritis Discharge Diagnosis: Acute back pain with sciatica Discharge Diagnosis: Benign essential HTN Discharge Diagnosis: Erectile dysfunction Discharge Diagnosis: Cervical radiculopathy Discharge Diagnosis: Pituitary macroadenoma Discharge Diagnosis: Morbid obesity Discharge Disposition: 01-Home or Self Care Attending Physician: Uriel Mckee MD Admitting Physician: Uriel Mckee MD Vital Signs Most recent to oldest [Reference Range]: 1 Blood Pressure [90-140/60-90 mmHg] 130/72 mmHg (09/18/16 11:03 AM) Problem List Condition Effective Dates Status Health Status Informant Acute back pain with Active sciatica(Confirmed) Benign essential HTN(Confirmed) Resolved Cervical radiculopathy(Confirmed) Active Choking sensation(Confirmed) Active Essential hypertension Active (disorder)(Confirmed) Hypogonadism, male(Confirmed) Active Globus pharyngeus(Confirmed) Active Hip replacement(Confirmed) Resolved Hypertension(Confirmed) Active Morbid obesity(Confirmed) Active patient Obesity (disorder)(Confirmed) Active Obesity(Confirmed) Active Erectile dysfunction(Confirmed) Active Osteoarthritis(Confirmed) Active Pituitary [...] 2x/Wk, # 8 Each, 4 Refill(s), Pharmacy: [facility] [id number], patient must keep appointment, 1 tabs Oral 2x/Wk Start Date: 06/27/16 Status: Orderedlosartan 50 mg oral tablet See Instructions, TAKE 1 TABLET BY MOUTH EVERY DAY, # 30 tabs, 5 Refill(s), eRx : [facility] [id number], TAKE 1 TABLET BY MOUTH EVERY DAY Start Date: 03/24/16 Status: Orderedtestosterone cypionate 200 mg/mL intramuscular solution 200 mg 1 mL, IntraMuscular, q2wk, # 3 mL, 3 Refill(s) Start Date: 04/17/16 Status: OrderedtraMADol 50 mg oral tablet 1-2 tabs, Oral, q8hr, as needed for pain, [facility], # 60 tabs, 0 Refill(s), 1- 2 tabs Oral q8hr,PRN:as needed for pain Start Date: 09/18/16 Status: OrderedViagra 50 mg oral tablet 50 mg 1 tabs, Oral, Daily, as needed for erectile dysfunction, # 10 tabs, 0 Refill(s), Pharmacy: [facility] [id number], 1 tabs Oral Daily,PRN:as needed for erectile [...] Patient Education Author: Uriel Mckee MD Date: 09/18 Preventive Medicine Back Exercises Back exercises help treat and prevent back injuries. The goal of back exercises is to increase the strength of your abdominal and back muscles and the flexibility of your back. These exercises should be started when you no longer have back pain. Back exercises include: Pelvic Tilt. Lie on your back with your knees bent. Tilt your pelvis until the lower part of your back is against the floor. Hold this position 5 to 10 sec and repeat 5 to 10 times. Knee to Chest. Pull first 1 knee up against your chest and hold for 20 to 30 seconds, repeat this with the other knee, and then both knees. This may be done with the other leg straight or bent, whichever feels better. Sit-Ups or Curl-Ups. Bend your knees 90 degrees. Start with tilting your pelvis, and do a partial, slow sit-up, lifting your trunk only 30 to 45 degrees off the floor. Take at least 2 to 3 second s for each sit-up. Do not do sit-ups with your knees out straight. If partial sit-ups are difficult, simply do the above but with only tightening your abdominal muscles and holding it as directed. Hip-Lift. Lie on your back with your knees flexed 90 degrees. Push down with your feet and shoulders as you raise your hips a couple inches off the floor; hold for 10 seconds, repeat 5 to 10 times. Back arches. Lie on your stomach, propping yourself up on bent elbows. Slowly press on your hands, causing an arch in your low back. Repeat 3 to 5 times. Any initial stiffness and discomfort should lessen with repetition over time. Shoulder-Lifts. Lie face down with arms beside your body. Keep hips and torso pressed to floor as you slowly lift your head and shoulders off the floor. Do not overdo your exercises, especially in the beginning. Exercises may cause you some mild back discomfort which lasts for a few minutes; however, if the pain is more severe, or lasts for more than 15 minutes, do not continue exercises until you see your caregiver. Improvement with exercise therapy for back problems is slow. See your caregivers for assistance with developing a proper back exercise program. This information is not intended to replace advice given to you by your health care provider. Make sure you discuss any questions you have with your health care provider. Document Released: 11/29/2005 Document Revised: 01/13/2013 Document Reviewed: 12/16/2015 Elsevier Interactive Patient Education 2016 [employer] No follow up information was provided. Extracted from: Title: Office Visit Note Author: Uriel Mckee MD Date: 09/18/16 Assessment/Plan Acute back pain with sciatica Xraypending. Will likely see Dr. Mathis. Wants tramadol 50mg po bid prn, may cause sedation. Had left hip trouble previously and now right hip pain and wants to start with an xray. Benign essential HTN This issue was reviewed, [...] testing desired by them at this time. Stable at this time. Erectile dysfunction Samples of the new medication were provided as a courtesy. Side effects were discussed and follow up was recommended. Viagra 50mg po daily prn. Samplesgiven as a courtesy. Call report. Still should see Endo. Hypogonadism, male This issue was reviewed, appears stable, and current therapy continued except as mentioned. Appropriate lab was reviewed from the most recent appropriate entry and lab was ordered if needed in the cpoe/nursing orders, and follow up recommended generally in 90 days and no later then six months. Seeing Endo. Appt pending. Morbid obesity Diet and exercise as tolerated [...] and no later then six months. Seeing Endo. Pituitary Macroadenoma , stable size in 10/2015 and 05/2015, compared to 2013. normal visual fay continue cabergoline 0.5 bi-weekly also repeat pituitarypanel today patient to see ophtalmology again in 6 months repeat pituitary mri in 6 months, 04/2016 if all still stable, repeat mri yearly as of then hypogonadism: secondary can be due to macroadenoma on testosterone 200 mg [id number] check testosterone, cbc, psa today decide on f/u according to results [1] IMPRESSION: 17 mm x 17 mm x 14 mm right sellar/pituitary enhancing mass most consistent with a macroadenoma is unchanged since the prior exam. No adverse interval change is noted. [2] Sleep apnea This issue was reviewed, appears stable, and current therapy continued except as mentioned. Appropriate lab was reviewed from the most recent appropriate entry and lab was ordered if nee ded in the cpoe/nursing orders, and follow up recommended generally in 90 days and no later then six months. On cpap. Thyroid disease Followed in Endo.
--- OUTSIDE RECORDS SUMMARY | 2017-07-24 08:28 | External Medical Summary | Referral Summary ---
:1955 Author Organization [facility] Address [address] [place] [address] Care Team Providers Name Role Phone Uriel Mckee Primary Care Physician Encounter [facility] [id number] Date(s): 05/18/15 - 05/18/15 [facility] [address] [place] [address] - [place] Discharge Diagnosis: OTHER TESTICULAR HYPOFUNCTION Discharge Disposition: 01-Home or Self Care Attending Physician: Eri Fitzgerald MD Admitting Physician: Provider, Immediate Care Vital Signs No data available for this section Problem List Condition Effective Dates Status Health [...] 2x/Wk, # 8 Each, 4 Refill(s), Pharmacy: [facility] [id number], patient must keep appointment, 1 tabs Oral 2x/Wk Start Date: 09/13/15 Status: Orderedlosartan 50 mg oral tablet 50 mg 1 tabs, Oral, Daily, Needs med check please., # 30 tabs, 0 Refill(s), [id number], 1 tabs Oral Daily,x30 days,Instr:Needs med check please. Start Date: 11/19/15 Stop Date: 12/19/15 Status: Orderedtestosterone cypionate 200 mg/mL intramuscular solution 200 mg 1 mL, IntraMuscular, q2wk, # 3 mL, 3 Refill(s) Start Date: 05/11/15 Status: OrderedtraMADol 50 mg oral tablet 1-2 tabs, Oral, q8hr, as needed for pain, [facility], # 60 tabs, 0 Refill(s), 1- 2 [...]
--- OUTSIDE RECORDS SUMMARY | 2017-07-24 08:28 | External Medical Summary | Referral Summary ---
:1955 Author Organization [facility] Address [address] [place] [address] Care Team Providers Name Role Phone Uriel Mckee Primary Care Physician Encounter [facility] [id number] Date(s): 05/11/15 - 05/11/15 [facility] [address] [place] [address] - [place] Discharge Diagnosis: Hypogonadism, male [...] 2x/Wk, # 8 Each, 4 Refill(s), Pharmacy: [facility] [id number] , 1 tabs Oral 2x/Wk Start Date: 12/30/14 Status: Orderedlosartan 50 mg oral tablet See Instructions, 1 TABS ORAL DAILY,INSTR:APPOINTMENT NEEDED PRIOR TO ADDITIONAL REFILLS., # 30 tabs, 5 Refill(s), [facility] [place] [id number], 1 TABS ORAL DAILY,INSTR:APPOINTMENT NEEDED PRIOR TO ADDITIONAL REFILLS. Start Date: 05/19/15 Status: Orderedtestosterone cypionate 200 mg/mL intramuscular solution 200 mg 1 mL, IntraMuscular, q2wk, # 3 mL, 3 Refill(s) Start Date: 05/11/15 Status: OrderedtraMADol 50 mg oral tablet 1-2 tabs, Oral, q8hr, as needed for pain, [facility], # 60 tabs, 0 Refill(s), [...] [0.80-3.30 10*3] 1.25 10*3 (05/11/15 9:18 AM) [place] [facility] [0.30-1.00 10*3] 0.65 10*3 (05/11/15 9:18 [...]
[2017-07-24 08:41] VITALS: BMI 36.0
[2017-07-24] MEDS ORDERED: SALINE FLUSH 10ml SYRINGE IV PRN (09:02)
[2017-07-24] MEDS: LR 1,000 ML IV SCH ×3 (09:19→14:57)
--- NOTE | 2017-07-24 09:28 | Anesthesia Preoperative Report ---
Anesthesia Preoperative Record - Date and Time Date: 07/24/17 Preoperative Diagnosis: Rev Rt JAISON Z96.649 Proposed Procedure: Right hip revision NPO Since Date: 07/24/17 NPO Since Time: 00:00 Allergies/Adverse Reactions: Allergies Allergy/AdvReac Type Severity Reaction Status Date / Time Cefadroxil Hydrate Allergy Mild RASH Uncoded 07/24/17 08:49 - Vital Signs Vital Signs: Temperature 98.5 F 07/24/17 08:42 Pulse Rate 64 07/24/17 09:12 Respiratory Rate 17 07/24/17 08:42 Blood Pressure 132/71 07/24/17 08:42 Pulse Oximetry 95 07/24/17 08:42 Height and Weight: Height 1.83 m Weight 120.5 kg Body Mass Index 36.0 - Medications Inpatient Medications: Current Medications Lactated Ringer's (Lactated Ringers) 1,000 mls @ 50 mls/hr IV .Q20H STONE Last Admin: 07/24/17 09:19 Dose: 50 mls/hr Epinephrine HCl 0.25 mg/Bupivacaine HCl 30 ml/Morphine Sulfate 15 mg/Ketorolac Tromethamine 60 mg/Sodium Chloride 65.25 mls @ 1 mls/hr OPSITE INTRAOP ONE PRN Reason: Protocol Stop: 07/27/17 01:14 Sodium Chloride (Iv Flush) 10 - 80 ml IV PRN PRN PRN Reason: Flushing Home Medications: Home Medications Medication Instructions Recorded Confirmed Type Cabergoline 0.5 mg PO 2XWK #0 12/04/16 07/24/17 History Losartan Potassium 50 mg PO DAILY #0 12/04/16 07/24/17 History Acetaminophen 2 tab PO Q8H PRN #0 02/23/17 07/24/17 History Aspirin [Ecotrin] 1 tab PO DAILY 05/16/17 07/24/17 History Naproxen Sodium [Aleve] 1 tab PO BID PRN 05/17/17 07/24/17 History Is Patient on Beta Tania?: No - Medical History Cardiovascular: Reports: Hypertension - Surgical History Endocrine Surgery/Treatments: Reports: Thyroidectomy GI Surgery/Treatments: Reports: Hernia Repair (bilateral inguinal), Colonoscopy Surgery/Treatment: DENIES: Dialysis Musculoskeletal Surgery/Tx: Reports: Total Hip Replacement (left and right) Reproductive Surgery/Treatment: Reports: Vasectomy Anesthesia Reactions: None Hx Family Anesthesia Reaction: No History of Motion Sickness: No - Social History Smoking Status: Current every day smoker packs per day: 3 (Cigars) Pack-years: 1 Hx Chewing Tobacco Use: No Second Hand Exposure: No Substance Use Type: does not use Alcohol Intake Frequency: does not drink - Pertinent Findings EKG: Sinus Rhythm - Physical Exam Respiratory Exam: Present: lungs clear Cardiovascular Exam: Present: regular rate and rhythm - Airway Assessment Mallampati Score: II TMD: 3 Fingerbreadths Neck Extension: good Overall Assessment: no airway concerns - ASA ASA Score: 2 - Plan Anesthesia: General Inhalation Gases - Discussion Discussion: Discussed risks/options/alternatives of anesthesia and questions answered. Patient consents. Nursing pain assessment noted. Present for Discussion: family member Attestation Statement: Prior to the delivery of any anesthetic medication, I examined the patient, developed the plan, obtained the patient's consent and discussed the risk and benefits of the procedure with the patient/guardian.
[2017-07-24] MEDS ORDERED: VANCOMYCIN 1,000 MG INJECTION IAR ONE (10:27)
[2017-07-24] MEDS ORDERED: PROPOFOL 1,000 MG/100 ML VIAL IV ONE (11:00)
[2017-07-24] MEDS ORDERED: MIDAZOLAM 2mg/2ml INJECTION ONE (11:04)
[2017-07-24] MEDS ORDERED: PROPOFOL 500 MG/50 ML VIAL IV ONE ×2 (12:06→13:23)
[2017-07-24] MEDS ORDERED: ONDANSETRON 4 MG/2 ML INJECTION IVP PRN ×2 (12:43→15:34)
--- NOTE | 2017-07-24 13:59 | Operative Note ---
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 Operation: other (revision total hip arthroplasty) Surgeon: Jackelyn Mathis MD Bilingual Instructor: Seamus Chaney Complications: None. Regional/Trunk Block: Spinal Estimated Blood Loss: See Anesthesia Record. Fluids: Please see Anesthesia Record. Description of Procedure: Mr. Macedo and his right hip were identified and marked in the preoperative holding area. He was brought back to the operating suite and spinal anesthetic was administered. Presents placed in the lateral decubitus position with his right side up. The right lower extremity was prepped and draped in my normal sterile fashion. Timeout was performed. Previous posterior incision was utilized. Sharp dissection was carried down to muscle fascia which was then split in line with the skin incision. After some scar down bursal tissue was removed there was a hole in this capsule likely from the previous dislocation. He dislocated at about 20 of internal rotation with the hip flexed at 90. The previous ceramic head was removed as well as the plastic liner. Enough capsule was removed to allow for visualization of the acetabular shell. There was some osteophytes anteriorly which may have been causing impingement which were removed with osteotomes and rongeurs. We then placed a trial MDM liner with a +7.5 head and reduced the hip. This improved stability to about 30-35 of internal rotation with the hip flexion 90 and that was without a capsular repair. After thorough irrigation a final MDM liner was placed as well as a final +7.5 head and a final reduction performed. The wound was thoroughly irrigated. Joint cocktail was injected throughout soft tissue. The capsule was repaired with interrupted Ethibond. 1 g vancomycin powder was placed into the joint. The muscle fascia was then repaired with #1 Vicryl followed by 2-0 Vicryl in the subcutaneous tissue followed by running 4- 0 Monocryl in the subcuticular layer followed by Dermabond and a sterile dressing. The patient was then taken to the recovery room under the care of anesthesia he tolerated the procedure well and there were no complications.
[2017-07-24] MEDS ORDERED: PROPOFOL 20 ML ONE (14:15)
--- NOTE | 2017-07-24 14:52 | Anesthesia Postoperative Note ---
- Date and Time Date: 07/24/17 Time: 14:51 - Status Patient Participated in Evaluation: Patient Participated in Person Vital Signs: Temperature 96.8 F 07/24/17 14:17 Pulse Rate 62 07/24/17 14:35 Respiratory Rate 16 07/24/17 14:35 Blood Pressure 95/51 07/24/17 14:35 Pulse Oximetry 95 07/24/17 14:35 Respiratory Function: Airway Patent Cardiovascular Function: Regular Pulse EKG: Sinus Rhythm Mental Status: Alert and Oriented Pain Intensity: 3 Hydration: IV Infusing Complications During Recover: None Apparent - Follow-Up Instructions Instructions: Per Surgeon
[2017-07-24] MEDS: HYDROMORPHONE 2 MG/ML INJECTION IVP PRN ×2 (14:58→15:11)
--- NOTE | 2017-07-24 15:14 | XRay Report ---
Indication: postoperative image PROCEDURE: XR pelvis w/ 1 view RT hip: Encounter: Initial Comparison: February 23, 2017 Findings: Postoperative changes of right total hip revision are seen. There is expected postoperative subcutaneous gas. No evidence of hardware failure or acute fracture. No retained radiopaque surgical instruments or sponges seen. Existing left hip replacement appears intact. Impression: Revision right total hip prosthesis without evidence of immediate complication. .
[2017-07-24] MEDS ORDERED: NAPROXEN 220 MG TABLET PO PRN (15:34)
[2017-07-24] MEDS ORDERED: DiphenhydrAMINE 50 MG/ML INJECTION IVP PRN (15:34)
[2017-07-24] MEDS ORDERED: NAPROXEN SODIUM PO PRN (15:34)
[2017-07-24] MEDS ORDERED: CABERGOLINE 0.5 MG TABLET PO SCH ×2 (15:34→16:45)
[2017-07-24] MEDS ORDERED: DiphenhydrAMINE 25 MG CAPSULE PO PRN (15:34)
[2017-07-24] MEDS ORDERED: NOZIN NASAL SWAB NAS ONE (15:34)
[2017-07-24] MEDS ORDERED: LORazepam 1 MG TABLET PO PRN (15:34)
[2017-07-24] MEDS: NS 1,000 ML IV SCH (16:09)
[2017-07-24] MEDS: ACETAMINOPHEN 325 MG TABLET PO SCH ×2 (17:21→21:00)
[2017-07-24] MEDS: CLINDAMYCIN PB 900 MG/50 ML BAG IV SCH ×2 (17:22→22:42)
[2017-07-24] MEDS: Oxycodone *IR* 5 MG TABLET PO PRN (19:32)
[2017-07-24] MEDS: DOCUSATE SODIUM 100 MG CAPSULE PO SCH (21:00)
[2017-07-24] MEDS ORDERED: SENNOSIDES 8.6 MG TABLET PO SCH (21:00)
[2017-07-24] MEDS: NOZIN NASAL SWAB NAS SCH (21:03)
[2017-07-24] MEDS: ASPIRIN *EC* 325 MG TABLET PO SCH (22:00)
[2017-07-25] MEDS: Oxycodone *IR* 5 MG TABLET PO PRN (00:47)
[2017-07-25] MEDS: NS 1,000 ML IV SCH (03:26)
[2017-07-25] MEDS: CLINDAMYCIN PB 900 MG/50 ML BAG IV SCH (05:11)
[2017-07-25] MEDS: NOZIN NASAL SWAB NAS SCH (05:11)
--- NOTE | 2017-07-25 07:13 | Orthopedic Progress Note ---
Date: Subjective/Severity of Illness: Doing very well. No pain to speak of. No CV or resp complaints. Dressing dry. Orthopedic Objective PO Vital signs: Temperature 96.7 F L 07/25/17 03:00 Pulse Rate 60 07/25/17 03:00 Respiratory Rate 07/25/17 03:00 Blood Pressure 131/73 07/25/17 03:00 Pulse Oximetry 97 07/25/17 03:00 Height and Weight: Height 6 ft Weight 265 lb 10.512 oz Body Mass Index 36.0 - Constitutional General Appearance: Present: alert, no acute distress - Respiratory Exam Present: non-labored - Extremities Exam Extremities: Present: pulses intact, normal capillary refill. Absent: calf tenderness - Surgical Site Incision: Mepilex dressing intact, no drainage - Integumentary Exam Present: pink, warm, dry - Neurological Exam Present: intact to light touch, no deficits - Psychiatric Exam Present: alert - Labs Result Diagrams: 07/25/17 03:55 07/25/17 03:55 Abnormal lab results 07/24/17 07/24/17 07/25/17 Range/Units 08:54 08:54 03:55 WBC 13.4 H D (4.5-11.0) T/MM3 RBC 4.45 L (4.50-5.90) M/MM3 RDW Std Deviation 52.1 H (36.9-50.2) FL Neut % (Auto) 77.0 H (33-66) % Lymph % (Auto) 13.4 L (23-45) % Chloride 113 H (98-107) MEQ/L H & H 07/24/17 07/25/17 Range/Units 08:54 03:55 Hgb 16.9 14.4 D (13.5-17.5) GM/DL Hct 48.7 42.3 D (41-53) % Orthopedic Assessment and Plan (1) Status post right hip replacement Status: Chronic Problem Details: Instability of right total hip replacement. Assessment and Plan: Current anti-coagulation protocol for VTE prophylaxis. SCD's. PT/OT services to improve independent function. Discharge Planning per Case Management. Expect discharge today. - Anticoagulation Therapy Anticoagulation: ASA 325 mg PO BID x6 weeks Hospital Course Summary Disclaimer: The visit summary below is not to be considered part of the above Progress Note.
[2017-07-25] MEDS: DOCUSATE SODIUM 100 MG CAPSULE PO SCH (08:35)
[2017-07-25] MEDS: ACETAMINOPHEN 325 MG TABLET PO SCH (08:35)
[2017-07-25] MEDS: ASPIRIN *EC* 325 MG TABLET PO SCH (08:36)
[2017-07-25] MEDS ORDERED: POLYETHYL GLYCOL 3350 17gm PACKET PO SCH (09:00)
[2017-07-25] MEDS ORDERED: LOSARTAN 50 MG TABLET PO SCH (09:00)
[2017-07-25 12:51] VITALS: BP 125/70; PULSE 64; RESP 18; TEMP 96.3; O2SAT 96
--- NOTE | 2017-07-25 12:58 | Discharge Summary ---
Orthopedic Discharge Info Date of admission: 07/24/17 08:20 Anticipated date of discharge: 07/25/17 Primary care physician: Uriel Mckee MD Attending Physician: Fabián Mathis MD Consults: 07/24/17 08:42 Consult to Anesthesiology [CONS] Routine Consulting Provider: QUINN Armendariz Reason For Exam: Preoperative Assessment 07/24/17 15:34 Case Management Consult [CONS] Routine Reason For Exam: Discharge Planning DME-Walker [CONS] Routine Height: 6 ft Weight: 265 lb 10.512 oz Comment: change dressing in 2 weeks Total Joint Outpatient Therapy [CONS] Routine Comment: change dressing in 2 weeks - Discharge Diagnosis (1) Status post right hip replacement Problem Details: 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 - Laboratory Result Diagrams: 07/25/17 03:55 07/25/17 03:55 Laboratory: Abnormal lab results 07/25/17 Range/Units 03:55 WBC 13.4 H D (4.5-11.0) T/MM3 RBC 4.45 L (4.50-5.90) M/MM3 H & H 07/24/17 07/25/17 Range/Units 08:54 03:55 Hgb 16.9 14.4 D (13.5-17.5) GM/DL Hct 48.7 42.3 D (41-53) % Orthopedic Discharge HPI - HPI Comments Pt admitted for revision of his right hip due to instability. See H&P from Dr Mathis for more details. Orthopedic Hospital Course Hospital course: 07/25/17 12:56 After appropriate preoperative clearance and signing of operative consent, the patient was given IV antibiotics, according to orthopedic protocol. The patient was taken to the operating room and underwent elective right total hip revision. Following surgery, antibiotics were discontinued less than 24 hours according to joint protocol. Appropriate anticoagulants were initiated and SCDs added for DVT prevention. The dressing was clean, dry, and intact. Pain control was obtained via multimodal approach. Bowel motivation addressed with scheduled and PRN medications. Early mobilization was initiated through PT services. Discharge arrangements made by a collaborative effort between the patient and Case Management. Follow-up is scheduled in 2-3 weeks. Discharge instructions given by orthopedic providers and nursing staff at discharge. Discharge condition was good. Ongoing care required?: No Discharge Plan - Med Rec/Dispo Referrals/Follow Up: Fabián Mathis MD [Physician] - 08/15/17 8:30 am Adrian Instructions: [facility] Postop Instructions Prescriptions: New Aspirin *EC* [Ecotrin] 325 mg PO BID tablet Milk of Magnesia [Mom] 30 ml PO DAILY udc Continue Losartan Potassium 50 mg PO DAILY #0 Acetaminophen 2 tab PO Q8H PRN #0 PRN Reason: PAIN Aspirin [Ecotrin] 1 tab PO DAILY Cabergoline 0.5 mg PO 2XWK #0 Naproxen Sodium [Aleve] 1 tab PO BID PRN PRN Reason: Pain
[2017-07-25] MEDS ORDERED: SENNOSIDES 8.6 MG TABLET PO PRN (14:10)
[2017-07-26] MEDS ORDERED: BISACODYL 10 MG SUPPOSITORY RECTALLY SCH (20:00)
== END 2017-07-25 13:32 | disposition home or self-care (01) | DRG 468 ==
LOC: SRG 08:20
PROVIDERS: ADMIT Orthopaedic Surgery; ATTEND Orthopaedic Surgery